=== PATIENT | female | born 1980 | race Caucasian/White ===

== ENCOUNTER → 2021-05-31 10:02 | Outpatient (CLI) | payer BC, SELFPAY ==
--- NOTE | ~2021-05-31 | XR_ITS ---
XR foot LT min 3V DATE: 05/31/2021 11:38 INDICATION: Left foot pain TECHNIQUE: 4 views COMPARISON: None FINDINGS: No fracture or dislocation, periosteal reaction or bone destruction. No erosive change. The re is degenerative spurring consistent with osteoarthritis at the tibiotalar joint. 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 Reviewed, dictated and finalized at location A.
== END ==
PROVIDERS: PCP Internal Medicine; Visit Provider Internal Medicine
DX: M19.072 Primary osteoarthritis, left ankle and foot (principal)
CPT/HCPCS: 73630

== ENCOUNTER → 2021-08-27 07:44 | Outpatient (CLI) | payer BC, SELFPAY ==
--- NOTE | ~2021-08-27 | MMUS_ITS ---
EXAMINATION: MM diagnostic primo BI w sumit, US breast RT complete HISTORY: Palpable right breast lump TECHNIQUE: Additional 3-D tomosynthesis images of the breasts were performed and synthetic 2-D images were generated. CAD analysis was submitted and interpreted. High resolution complete right breast ul trasound was performed. COMPARISON: None BREAST PARENCHYMAL COMPOSITION: The breasts are heterogenously dense, which may obscure small masses FINDINGS: MAMMOGRAPHIC FINDINGS: There are no suspicious masses, calcifications or architectural distortion in either breast to sugges t malignancy. There is a normal-appearing lymph node in the upper outer quadrant of the right breast posteriorly. ULTRASOUND: Complete US of all 4 quadrants of the the right and retroareolar region was reviewed. At 10:00, 9 cm from the nipple there is a normal-appearing 1.4 cm lymph node corresponding to the mammographic findi ng. There is normal fatty hilum. No suspicious solid or cystic masses are identified in the right lidia ast to suggest malignancy. IMPRESSION: 1. No evidence for malignancy in either breast. 2. Routine yearly screening mammogram and regular clinical breast examination are recommended. BI-RADS Category 2: Benign finding(s). Reviewed, dictated and finalized at location A. IMPRESSION: 1. No evidence for malignancy in either breast. 2. Routine yearly screening mammogram and regular clinical breast examination a re recommended. BI-RADS Category 2: Benign finding(s).
== END ==
PROVIDERS: PCP Internal Medicine; Visit Provider Nurse Practitioner
DX: N64.59 Other signs and symptoms in breast (principal); N60.11 Diffuse cystic mastopathy of right breast
CPT/HCPCS: 76641; 77062; 77066; G0279

== ENCOUNTER 2022-06-23 13:38 | Inpatient (IN) | payer BC, SELFPAY ==
[2022-06-23] VITALS (25 sets, daily range): BP systolic 82–149; BP diastolic 49–112; PULSE 102–137; RESP 16–37; TEMP 35.8–37.6; O2SAT 74–100
--- NOTE | ~2022-06-23 | XR_ITS ---
EXAMINATION: XR chest ET placement DATE: 06/23/2022 14:05 INDICATION: Intubation. Cardiac arrest. TECHNIQUE: A single frontal view of the chest was obtained. COMPARISON: Chest single view 10/25/2017 FINDINGS: There are airspace opacities in all lung zones bilaterally with an upper lung predominance. No pleural effusion or pneumothorax. The heart size is normal. The endotracheal tube tip is 5.9 cm a emigdio the sejal. The nasogastric tube tip is beyond the inferior margin of the radiograph, but at dexter st to the stomach. IMPRESSION: 1. Diffuse lung disease, consistent with pulmonary edema versus pneumonia. Reviewed, dictated and finalized at location A.
--- NOTE | ~2022-06-23 | CT_ITS ---
EXAMINATION: CTA chest PE protocol DATE: 06/23/2022 14:33 INDICATION: Cardiac arrest. TECHNIQUE: Computed tomography angiography (CTA) of the chest was performed with 100 mL Omnipaque-350 intravenous contrast timed to evaluate the pulmonary arteries. Coronal maximum intensity projection 3D-reconstructions were created by the technologist. Automated exposure control and iterative reconst ruction technique were employed. The dose-length product was 1013.05 mGy-cm. COMPARISON: Chest single view 06/23/2022 FINDINGS: There are airspace and groundglass opacities and septal thickening throughout the lungs wit h a posterior and superior and perihilar predominance. No pleural effusion. The heart size is normal. No pericardial effusion. There is no pulmonary embolus. There are changes of cholecystectomy. The na sogastric tube tip is in the stomach. The stomach is distended. The endotracheal tube tip is in the t rachea. There is mild thoracic spondylosis. IMPRESSION: 1. No pulmonary embolus. Sensitivity is mildly decreased by motion artifact. 2. Diffuse lung disease, consistent with severe pulmonary edema without or with superimposed pneumoni a. Reviewed, dictated and finalized at location A. IMPRESSION: 1. No pulmonary embolus. Sensitivity is mildly decreased by motion artifact. 2. Diffuse lung disease, consistent with severe pulmonary edema without or with superimposed pneumonia.
--- NOTE | ~2022-06-23 | CT_ITS ---
EXAMINATION: CT brain wo con DATE: 06/23/2022 14:31 INDICATION: Head injury. TECHNIQUE: Computed tomography (CT) of the head was performed without intravenous contrast. The mA wa s adjusted according to patient size. Iterative reconstruction technique was employed. The dose-lengt h product was 756.67 mGy-cm. COMPARISON: None FINDINGS: There is no intracranial hemorrhage, acute infarction, or abnormal intracranial mass lesion . The ventricles are normal in size. The orbits are normal. There is mild mucosal thickening in the p aranasal sinuses. The mastoid air cells are normal. There is multifocal dental disease. There is left frontal lateral scalp soft tissue swelling with skin stephanie. IMPRESSION: 1. Normal brain. Reviewed, dictated and finalized at location A. IMPRESSION: 1. Normal brain.
--- NOTE | ~2022-06-23 | CT_ITS ---
EXAMINATION: CT cervical spine wo con DATE: 06/23/2022 14:32 INDICATION: fall TECHNIQUE: Computed tomography (CT) of the cervical spine was performed without intravenous contrast. Automated exposure control and iterative reconstruction technique were employed. The dose-length pro duct was 541.69 mGy-cm. COMPARISON: None. FINDINGS: Vertebral Body Alignment: Intact. . Craniocervical and atlantoaxial alignment: Moderate degenerative change. Alignment intact. Osseous structures/fracture: No evidence of a lytic or blastic process in the visualized spine. No e vidence of acute fracture. . Cervical soft tissues: The paraspinal soft tissues planes are maintained. NG and endotracheal tubes t raverse the neck. Diffuse patchy airspace disease and interlobular septal thickening. Left maxillary mucosal thickening. Degenerative changes: Degenerative changes, without severe neural foraminal or central canal narrowin g. IMPRESSION: No acute fracture or traumatic malalignment in the cervical spine. Severe pulmonary edema. Incomplete ly visualized endotracheal and nasogastric tubes. Reviewed, dictated and finalized at location K. IMPRESSION: No acute fracture or traumatic malalignment in the cervical spine. Severe pulmo nary edema. Incompletely visualized endotracheal and nasogastric tubes.
--- NOTE | ~2022-06-23 | XR_ITS ---
EXAMINATION: XR abdomen NG/feed tube insert INDICATION: Cardiac arrest TECHNIQUE: Portable AP KUB-NG at 1402 hours COMPARISON: None available FINDINGS: The nasogastric tube is present in the distended stomach. The bowel gas pattern is nonspeci fic. Surgical clips in the right upper quadrant are likely from prior cholecystectomy. IMPRESSION: 1. Nasogastric tube in the distended stomach. Reviewed, dictated and finalized at location B.
--- NOTE | 2022-06-23 13:34 | PC.NURSE ---
Pt arrived via EMS with bagging in process. Pt transferred to ED stretcher and Dr. Oconnell at head of bed to intubate patient. 20 etomidate given at 1338. 150 succ given at 1339. Pt successfully intubated with B breath sounds, color change, and equal chest rise and fall. Ett size 7.5, 23cm at teeth.
[2022-06-23] MEDS: AMIODARONE 360 MG/D5W 200 ML 360 MG/200 ML BAG 33.33 MG IV CONT ×2 (13:40→19:30)
--- NOTE | 2022-06-23 13:44 | ECG_ITS ---
Measurements Intervals [place] Rate: 120 P: -11 CO: 168 QRS: -7 QRSD: 168 T: 130 QT: 354 QTc: 501 Interpretive Statements SINUS TACHYCARDIA LEFT BUNDLE BRANCH BLOCK [120+ ms QRS DURATION, 80+ ms Q/S IN V1/V2, 85+ ms R IN I/aVL/V5/V6] NO PREVIOUS ECG AVAILABLE FOR COMPARISON Electronically Signed On 06-24-2022 14:00:08 CDT by Channing Jamil M.D.
[2022-06-23] MEDS: SODIUM CHLORIDE 0.9% IV 1,000 ML 999 ML IV CONT (13:48)
[2022-06-23] MEDS: FENTANYL 2,500MCG/NS250ML(*CRX 2,500 MCG/250 ML BAG IV CONT (13:53)
[2022-06-23 13:59] LABS: Hematocrit 53.7 % (37.0-47.0); Hemoglobin 16.2 g/dL (12.0-15.0); Mean Corpuscular HGB Conc 30.2 g/dl (32-36); Mean Corpuscular Hemoglobin 28.6 pg (26-34); Mean Corpuscular Volume 94.7 fl (80-100); Mean Platelet Volume 12.6 fl (7.4-10.4); Platelet Count Result 201 k/mm3 (150-375); Red Blood Count 5.67 M/mm3 (4.2-5.4); White Blood Count 13.4 K/mm3 (4.5-10.0)
--- NOTE | 2022-06-23 14:03 | ED.CPR ---
HPI - CPR General Chief Complaint: Cardiac Arrest/CPR Stated Complaint: ROSC Time Seen by Provider: 06/23/22 13:53 History of Present Illness HPI narrative: Patient is a 42-year-old female presenting after cardiac arrest. Patient was reportedly sitting at the breakfast table with her family when she suddenly complained of feeling lightheaded. Patient's daughter was with her and states that she became pale and then suddenly fell to the floor striking her head. Patient's daughter called 911 and started chest compressions per EMSs recommendation. EMS arrived and continued ACLS. Patient was found to be in V-fib, received 3 rounds of epi and was shocked 5-6 times with ROSC. Following ROSC, rhythm was sinus tach. EMS reports that she has been fighting BVM. I-gel is in place. Further history limited at this time. Related Data Home Medications Medication Instructions Recorded Confirmed No Home Medications 06/23/22 06/23/22 Allergies Allergy/AdvReac Type Severity Reaction Status Date / Time azithromycin Allergy Mild Hives / Verified 03/24/18 12:33 Red Face cefuroxime Allergy Unknown Verified 03/24/18 12:33 Cephalosporins Allergy Unknown Verified 03/24/18 12:33 Penicillins Allergy Unknown Verified 08/09/14 09:57 Review of Systems Review of Systems: ROS unobtainable: Yes unobtainable due to endotracheal tube, unobtainable due to medical condition and unobtainable due to mental status PMFSH Past Medical History Medical History (Updated 06/26/22 @ 22:03 by Jessika Oconnell MD) Anxiety Pneumonia SVT (supraventricular tachycardia) Surgical History Surgical History Hx of cholecystectomy S/P tonsillectomy and adenoidectomy Family History Family History (Updated 06/23/22 @ 21:34 by Marci Dan NP) Mother Family history of lung cancer Father Heart disease Other Asthma Family history of alcoholism Family history of kidney disease Social History Social History (Updated 06/23/22 @ 21:35 by Marci Dan NP) Social History: The patient lives with her . She has 4 children. Code status full code Smoking status: Never smoker Alcohol intake: never Substance use: never Spiritual care concerns: No Exam Narrative: GENERAL: Unresponsive, i-gel in place; profuse frothy pink secretions from mouth, nose, i-gel HEAD: 2 cm laceration left forehead EYES: Pupils approximately 4 mm bilaterally ENT: Profuse frothy secretions NECK: Supple. CHEST: Coarse breath sounds bilaterally with bagging HEART: Tachycardic, regular rhythm, 2+ radial pulses ABDOMEN: Soft, nontender, nondistended EXTREMITIES: No edema. SKIN: Warm, dry, no rash. NEURO: Unresponsive, intermittently thrashing PSYCH: Unresponsive Course Vital Signs Vital signs: Vital Signs Pulse Rate 136 H 06/23/22 13:40 Respiratory Rate 28 H 06/23/22 13:40 Blood Pressure 149/112 H 06/23/22 13:40 Temperature 98.1 F 06/24/22 01:44 Pulse Rate 102 H 06/24/22 02:00 Respiratory Rate 24 H 06/24/22 02:00 Blood Pressure 89/62 L 06/24/22 02:00 Pulse Oximetry 100 06/24/22 02:00 Oxygen Delivery Mechanical Ventilation 06/24/22 00:00 Fraction of Inspired Oxygen 100 06/24/22 00:00 Procedures Intubation Intubation #1: Intubation Date: 06/23/22 sedative: Etomidate Mg Given: 20 paralytic: Succinylcholine Mg Given: 150 Laryngoscope: Srinivasan Tube Size (cm): 7.5 Method of Intubation: orotracheal Number of Attempts: 2 Tube Secured Depth (cm): 23 Tube Secured Location: lips Tube Placement Confirmation: equal breath sounds bilaterally, no breath sounds over epigastrium and confirmation by capnometry Patient Tolerated Procedure: well Additional Comments: somewhat difficult intubation 2/2 oral secretions MDM - Cardiac Arrest/CPR MDM Narrative Med
[2022-06-23 14:13] LABS: Lactic Acid Reflex 9.5 mmol/L (0.7-2.0)
[2022-06-23 14:24] LABS: Amphetamine Screen Urine Negative (Negative); Barbiturate Screen Urine Negative (Negative); Benzodiazepines Screen Urine Negative (Negative); Cannabinoid Screen Urine Negative (Negative); Cocaine Screen Urine Negative (Negative); Methadone Screen Urine Negative (Negative); Opiate Screen Urine Negative (Negative); Phencyclidine Screen Urine Negative (Negative)
[2022-06-23 14:25] LABS: Appearance Urine Clear (Clear); Bacteria Urine None Seen /hpf; Bilirubin Urine Negative (Negative); Blood Urine 3+ (Negative); Color Urine Yellow (Yellow); Glucose Urine UA Negative (Negative); Ketones Urine Negative (Negative); Leukocyte Esterase Ur Trace LEU/UL (Negative); Nitrate Urine Negative (Negative); Non Pathogenic Casts 0-2; Protein Urine Negative (Negative); Specific Grav Ur 1.015 (1.001-1.035); Squamous Epithelial Cell Urine Occasional /hpf (Few); Urobilinogen Urine 0.2 mg/dL (<2.0)
[2022-06-23 14:38] LABS: Add Urine Microscopic? YES; Need Manual Microscopic Reviewed
[2022-06-23 14:40] LABS: Influenza A QL RT-PCR Negative (Negative); Influenza B QL RT-PCR Negative (Negative); SARS-CoV-2 RNA PCR Negative (Negative)
[2022-06-23 14:43] LABS: Anisocytosis 2+ (NORMAL); Band Neutrophils Percent 7 % (0-6); Eosinophils Percent Manual 3 % (0-4); Hypochromasia 1+ (NORMAL); Monocytes Percent Manual 6 % (3-9); Neutrophils Absolute Manual 4.28 K/mm3 (1.7-7.2); Neutrophils Percent Manual 25 % (46-73); Platelet Estimate Adequate (Adequate); Total Cells Counted 100
[2022-06-23 14:44] LABS: Atypical Lymphocytes Present; Microcytosis 1+ (NORMAL); Schistocytes None Seen (NORMAL)
--- NOTE | 2022-06-23 14:48 | PM.CNCAR ---
Assessment and Plan Assessment and plan (1) Ventricular fibrillation: Code(s): I49.01 - Ventricular fibrillation Status: Acute Plan 42-year-old lady unknown to me prior to this presentation she has out of hospital VF arrest and following resuscitation is noted to have a left bundle branch block. She did take a blow to the head when she fell with her VF at home. She will be sent to Radiology for head CT and chest CTA. Pending these findings and her basic lab work we will anticipate likely coronary angiography because of out of hospital VF and the development of left bundle branch block. Mo Mahmood MD [facility] History of Present Illness History of Present Illness Consult date/time: 06/23/22 14:48 Reason For Visit: ROSC Narrative: This is a 42-year-old patient I am seeing in the emergency department following out of hospital ventricular fibrillation. She is unknown to me prior to this encounter. A know history is of course obtainable from this patient as she is intubated unresponsive and on ventilator support. She apparently was in her home earlier today a short time ago having a meal with her family and collapsed at the table. Of 1 of family members began CPR and 911 was called. Upon arrival the patient was in ventricular fibrillation and resuscitation efforts were undertaken. She according to the report had CPR and 6 electrical cardioversion attempts before spontaneous circulation was restored. She was brought here to the emergency room that setting. The electrocardiogram shows sinus rhythm with a left bundle branch block. The old records from this hospital to not speak to the presence of a left bundle branch block. There are records that demonstrate evidence of SVT that occurred a number of years ago when she was . I have no other medical information available to me at the time of this dictation. Review of Systems Review of Systems: ROS unobtainable: Yes unobtainable due to endotracheal tube and unobtainable due to mental status [facility] Family History Family History Mother Family history of lung cancer Other Asthma Family history of alcoholism Family history of kidney disease Social History Social History Smoking status: Never smoker Alcohol intake: never Meds Home Medications and Allergies Allergies Allergy/AdvReac Type Severity Reaction Status Date / Time azithromycin Allergy Mild Hives / Verified 03/24/18 12:33 Red Face cefuroxime Allergy Unknown Verified 03/24/18 12:33 Cephalosporins Allergy Unknown Verified 03/24/18 12:33 Penicillins Allergy Unknown Verified 08/09/14 09:57 Vital Signs Vital Signs - 24 hr 06/23/22 13:40 06/23/22 13:53 Pulse Rate 136 H 121 H Respiratory Rate 28 H 21 H Blood Pressure 149/112 H Exam Const: Other: Overweight white female intubated unresponsive HENMT: Mouth: Yes moist mucous membranes Eyes: Sclera: sclerae normal Neck: Neck: supple Resp: Other: patient on ventilator breath sounds are somewhat coarse no rales no wheezing Cardio: Rate: regular rate Rhythm: regular rhythm Other: PMI not palpable first and second heart sounds are normal no murmur no gallop or rub GI: GI Palp: Yes Soft to palpation Auscultation: normal bowel sounds Skin: General skin exam: normal color Neuro: Other: unresponsive on ventilator Extrem: Other: no edema, adequate distal perfusion Results Labs and Meds 06/23/22 13:44 Lab results: CBC 06/23/22 Range/Units 13:44 WBC 13.4 H (4.5-10.0) K/mm3 RBC 5.67 H (4.2-5.4) M/mm3 Hgb 16.2 H (12.0-15.0) g/dL Hct 53.7 H (37.0-47.0) % Plt Count 201 (150-375) k/mm3 Lymph # (Auto) Not Reportable [place] # (Auto) Not Reportable Eos # (Auto) Not Reportable Baso # (Auto) Not Reportable Patient Weight 06/23/22
[2022-06-23] MEDS: MIDAZOLAM HCL (*CRX) 2 MG/2 ML VIAL (15:00)
[2022-06-23] MEDS: LIDO 1%/EPINEPHRINE 1:100,000 10 ML VIAL (15:00)
[2022-06-23] MEDS: MIDAZOLAM HCL (*CRX) 2 MG/2 ML VIAL 4 MG (15:00)
[2022-06-23] MEDS: MIDAZOLAM 100MG/NS 100ML(*CRX) 100 MG/100 ML BAG IV CONT (15:03)
[2022-06-23 15:17] LABS: INR 1.3
[2022-06-23 15:18] LABS: Partial Thromboplastin Time 42.6 SECONDS (22.3-36.8)
[2022-06-23 15:25] LABS: Alveolar/Arterial O2 Gradient 580.8 mmHg; Base Excess ABG -15.3 mEq/l (+/-2.0); Fractional Inspired Oxygen 100 %; HCO3 ABG 16.2 mEq/l (22.0-26.0); Oxygen Content ABG 19.3 %vol (16.0-22.0); PO2 ABG 70.1 mmHg (80.0-100.0)
[2022-06-23 15:25] LABS: Alanine Aminotransferase 81 U/L (6-35); Albumin Level 3.6 g/dL (3.5-5.1); Alkaline Phosphatase 46 U/L (38-126); Anion Gap 13 mmol/L (8-16); Aspartate Amino Transferase 117 U/L (14-36); Bilirubin,Total 0.8 mg/dL (0.2-1.3); Blood Urea Nitrogen 11 mg/dL (7-17); Calcium 7.3 mg/dL (8.4-10.2); Carbon Dioxide 17 mmol/L (22-30); Chloride 104 mmol/L (98-107); Estimated Glomerular Filt Rate 54; Glucose 346 mg/dL (65-110); Lipase 230 U/L (23-300); Magnesium 2.1 mg/dL (1.6-2.3); Phosphorus 8.1 mg/dL (2.5-4.5); Sodium 134 mmol/L (137-145)
[2022-06-23 15:27] LABS: PCO2 ABG 62.1 mmHg (35.0-45.0); pH ABG 7.035 (7.350-7.450)
[2022-06-23 15:28] LABS: Arterial Blood Gas Vent Mode CMV; Arterial Blood Gas Ventilator rate 16 /MIN; Device VENTILATOR; Oxygen Saturation ABG 84.7 % (95.0-100.0); Oxyhemoglobin 85.6 % THb (90.0-100.0); Site Drawn RIGHT BRACHIAL
[2022-06-23 15:29] LABS: Arterial Blood Gas PEEP 8 cmH2O; Arterial Blood Gas Tidal Volume 500 ml
[2022-06-23 15:35] LABS: NT Pro B Type Natriuretic Pept 419 pg/mL (19.9-100); Troponin I 0.153 ng/mL (0.000-0.034)
[2022-06-23] MEDS: FUROSEMIDE INJ 100 MG/10 ML VIAL 80 MG IV PUSH (15:37)
--- NOTE | 2022-06-23 15:48 | PC.NURSE ---
track laborer nurses here to prep patient, report given to RN. Family at bedside and updated on plan.
--- NOTE | 2022-06-23 16:40 | P.PCNCC_ITS ---
Cardiac Cath Procedure Note Date of procedure:: 06/23/22 Performing physician:: Mo Mahmood MD Indication:: out of hospital ventricular fibrillation arrest left bundle branch block Brief clinical history:: this is a 42-year-old woman with a history of hypertension who also has a previous history of SVT which was terminated with adenosine in the past. She apparently was at her home earlier today and was in having a meal with family and became unresponsive at the table. She was pulseless and not breathing CPR was started by the family. EMS found her to be in ventricular fibrillation. Resuscitation involved 6 electrical cardioversions and ongoing CPR ultimately spontaneous circulation was restored. Electrocardiogram here demonstrates left bundle branch block which is not previously seen on her electrocardiograms. She has undergone head and chest CT because of the fall and rule out pulmonary embolism these have been negative. Because of the VFib arrest and new left bundle branch block I have recommended coronary angiography. Procedure Procedure performed:: Coronary angiogram left ventriculogram Sedation/Medication given:: patient received intravenous Versed and fentanyl. Received 1 bolus of propofol in the laboratory chemical assistant case start time 4:10 p.m. case end time 4:33 p.m. sedation provided by Karla Bolden RN, trained observer Access site:: right femoral artery Estimated blood loss:: 25 cc Procedure note:: patient was brought to the cardiac catheterization lab in the postabsorptive state where the right femoral triangle was prepped and draped in the usual fashion. Anesthesia was provided with 1% lidocaine infiltrated locally. Following this the right femoral artery was punctured and a 5 [place] vascular sheath was placed. After this I used a 5 [place] FL4 catheter to engage and inject the left coronary artery in multiple projections. A 5 [place] JR4 catheter was used to engage inject the right coronary artery in orthogonal projections. Following this a 5 [place] angled pigtail catheter was used to measure left-sided hemodynamics and to inject old LV g in the 30 degree KIM projection. the case was then terminated the sheath was sutured into position the patient was taken to the ICU for further evaluation and management post VFib arrest. Findings:: Hemodynamics: Central aortic pressure was 98 over 64 left ventricle 98 over 5 end-diastolic 32. No gradient on pullback across the aortic valve left ventricle: The LV is markedly dilated there is severe global systolic hypocontractility with an ejection fraction I would visually estimate to be 15%. The left main coronary artery appears nicely patent the left anterior descending is a medium caliber artery extending down to the apex the LAD and its branches are smooth and angiographically normal. The circumflex is a small caliber vessel giving rise to only 1 significant marginal branch. The circumflex is smooth and angiographically normal in appearance. The right coronary artery is very large in caliber and dominant to the posterior circulation the RCA is also smooth and angiographically normal in appearance. Conclusion:: 1. Right coronary dominant circulation with no angiographic evidence of coronary artery disease 2. severe dilated cardiomyopathy with ventricular fibrillation resulting from this patient now in pulmonary edema with high LVEDP Mo Mahmood MD [facility]
--- NOTE | 2022-06-23 16:56 | ADMGEN ---
This patient, Kirsten Neri, was admitted to Intensive Care Unit-10. Patient/family oriented to hospital policies and general routines including ID bracelet, bed and alarms, visiting hours, pain management, procedures, bathroom and other care routines, personal items, smoking policy, room service/diet, and visiting hours. Information on how to activate the Rapid Response Team has been discussed. Patient/Family are encouraged to report perceived risks to care and to ask questions if they do not understand what they are told or what they should do.
[2022-06-23 16:57] LABS: Reflex Lactic Acid Yes or No Add Lactic
--- NOTE | 2022-06-23 17:22 | PCRCNOTE ---
On 06/23/2022 at 1524, RT notified Jessika Oconnell MD of ABG results. stated she is ok with SpO2 beng 85% or higher until patient is Diuresed.
--- NOTE | 2022-06-23 17:24 | PM.IMHP ---
H&P: HPI History of Present Illness Date/Time: 06/23/22 17:24 Chief Complaint: Cardiac arrest/CPR Narrative: This is a 42-year-old female patient who has a history of SVT. The family stated that the patient had been complaining of having palpitations and severe fatigue with shortness of breath. The patient presented to the hospital today with cardiac arrest. The patient was sitting at the breakfast table with her family when she suddenly complained of feeling lightheaded. Her daughter was with her and stated that she became pale and then suddenly fell to the floor striking her head. The patient's daughter called 911 and started chest compressions on the patient as recommended be a dispatch. EMS arrived and continued ACLS. The patient was found to be in VFib. She received 3 rounds of epi and was shocked 5-6 times with Rosc. The patient was in sinus rhythm and then sinus tachycardia. The patient was intubated prior to being admitted. She was intubated in the emergency room. It was noted that the patient had a large amount of frothy secretions. EKG was showing sinus tachycardia and left bundle branch block no ST elevations. Dr. Mahmood had been consulted and the patient was taken to the cardiac catheterization lab. It was noted that the patient had severe dilated cardiomyopathy with ventricular fibrillation resulting from this patient now in pulmonary edema with high LVEDP. EF is approximately 15%. Her white count was noted to be 22.6. Initial ABG pH 7.035 CO2 62.1 PO2 was 70.1. Troponin was noted to be 0.153, 0.665, and 0.983. BNP was 419. Influenza A/B and COVID are negative. Chest CTA was read as no pulmonary embolism sensitivities mildly decreased by motion artifact. Diffuse lung disease, consistent with severe pulmonary edema without or with superimposed pneumonia. Cervical spine no acute fracture or traumatic malalignment of the cervical spine. Severe pulmonary edema incompletely visualized endotracheal and nasogastric tubes. Head CT was read as normal brain. Chest x-ray shows the NG tube in the distended stomach. The patient was started on heparin drip, IV Lasix sodium bicarb and Versed., the patient had a laceration to her left forehead. Patient's blood pressure is low when I examined her therefore the decision to place a central line to the left femoral vein. Please see procedure note. The guard manager has been consulted. the patient is being admitted to inpatient status on the date of service of 06/23/2022. Review of Systems Review of Systems: All systems reviewed & are unremarkable except as noted in HPI and below Constitutional: Constitutional: Reports as per HPI and Reports no additional constitutional complaints Eyes: Eyes: Reports as per HPI and Reports no additional eye complaints ENT: Reports system reviewed and no additional complaints, except as documented and Reports Normal hearing present Cardiovascular: Cardiovascular: Reports no additional cardiovascular complaints Respiratory: Respiratory: Reports no additional respiratory complaints and Reports no additional respiratory complaints Gastrointestinal: Gastrointestinal: Reports as per HPI and Reports no additional gastrointestinal complaints Musculoskeletal: Musculoskeletal: Reports no additional musculoskeletal complaints Integumentary/Breasts: Skin/Breast: Reports system reviewed and no additional complaints, except as docu and Reports as per HPI Neurologic: Reports system reviewed and no additional complaints, except as documented, Reports as per HPI and Reports Normal hearing present Psychiatric: Psychiatric: Reports no additional psychiatric complaints and Reports as per HPI Endocrine: Endocrine: Reports no additional endocrine complaints Hematologic/Lymphatic: Hematologic/Lymphatic: Reports no additional hematologic/lymphatic complaints Allergic/Immunologic: Allergic/Immunologic: Reports no additional allergic/immunologic complaints [facility]
--- NOTE | 2022-06-23 18:15 | WPDPROCEDUR ---
Procedures Central Line Placement Left Femoral: Central Line Date: 06/23/22 Central Line Time: 18:00 Consent: I have discussed with the patient and/or surrogate, the non-emergent placement of a central venous catheter, including its clinical necessity/indication and associated potential risks and complications. The patient and/or surrogate understand(s) and acknowledge(s) the need to proceed with central venous catheter insertion as an important element of the patient's clinical management. Time Out Performed: Yes Patient Position: supine Patient placed on monitor/pulse ox: Yes Provider Prep: Max. sterile barrier precautions Central line prep: 2% Chlorhexidine scrub Local anesthesia used: lidocaine 1% Amount of anesthesia used (ml): 5 Sterile US Technique with sterile gel/sterile probe covers: Yes Central line lumen inserted: triple [place]: 7 Length (cm): 16 Depth of Insertion (cm): 16 Post Procedure: sutured in place, good blood return, all ports aspirated, flushed, capped, transparent dressing, hemostatic product and antimicrobial product Patient tolerated procedure: well and no complications Complications: none Additional comments: no xray required as it was femoral
[2022-06-23] MEDS: NOREPINEPHRINE 8 MG/D5W 250 ML 8 MG/250 ML BAG 9.38 MG IV CONT (18:38)
[2022-06-23 18:42] LABS: Alveolar/Arterial O2 Gradient 584.5 mmHg; Base Excess ABG -10.2 mEq/l (+/-2.0); Fractional Inspired Oxygen 100 %; HCO3 ABG 17.1 mEq/l (22.0-26.0); Oxygen Content ABG 22.6 %vol (16.0-22.0); Oxygen Saturation ABG 94.7 % (95.0-100.0); Oxyhemoglobin 95.1 % THb (90.0-100.0); PCO2 ABG 42.5 mmHg (35.0-45.0); PO2 FiO2 Ratio Arterial Blood 0.86 %; Total Hemoglobin 16.9 g/dL (12.0-18.0)
[2022-06-23 18:43] LABS: Device VENTILATOR; Modified Allen's Test Pass; Site Drawn LEFT RADIAL; pH ABG 7.222 (7.350-7.450)
[2022-06-23 18:43] LABS: Hematocrit 51.3 % (37.0-47.0); Hemoglobin 15.9 g/dL (12.0-15.0); Lactic Acid 2.8 mmol/L (0.7-2.0); Mean Corpuscular Hemoglobin 28.8 pg (26-34); Mean Corpuscular Volume 92.9 fl (80-100); Mean Platelet Volume 11.8 fl (7.4-10.4); Platelet Count Result 329 k/mm3 (150-375); Red Blood Count 5.52 M/mm3 (4.2-5.4); Red Cell Distribution Width 13.2 % (11.5-14.5); White Blood Count 22.6 K/mm3 (4.5-10.0)
[2022-06-23 18:44] LABS: Arterial Blood Gas PEEP 8 cmH2O; Arterial Blood Gas Tidal Volume 500 ml; Arterial Blood Gas Vent Mode CMV; Arterial Blood Gas Ventilator rate 16 /MIN
[2022-06-23] MEDS: HEPARIN SODIUM 5,000 UNITS/ML VIAL 4000 UNITS IV PUSH (18:48)
[2022-06-23] MEDS: HEPARIN SOD/D5W 100 UNITS/ML 25,000 UNITS/250 ML BAG 9 UNITS IV CONT (18:48)
[2022-06-23] MEDS: CENTRAL LINE FLUSH 10 ML IV PUSH ×2 (18:52→20:39)
[2022-06-23 18:54] LABS: INR 1.2; Prothrombin Time 14.4 Seconds (11.1-14.7)
[2022-06-23 18:55] LABS: Partial Thromboplastin Time 30.8 SECONDS (22.3-36.8)
[2022-06-23 19:00] LABS: Troponin I 0.665 ng/mL (0.000-0.034)
[2022-06-23] MEDS: SODIUM BICARBONATE 8.4% 50 MEQ/50 ML SYRINGE IV PUSH ×2 (19:13→22:22)
[2022-06-23] MEDS: MIDAZOLAM HCL (*CRX) 2 MG/2 ML VIAL IV PUSH (19:30)
[2022-06-23 19:38] LABS: Total Cells Counted 100
[2022-06-23 19:39] LABS: Band Neutrophils Percent 11 % (0-6); Lymphocytes Absolute Manual 3.39 K/mm3 (1.1-4.5); Lymphocytes Percent Manual 15 % (18-44); Monocytes Absolute Manual 0.67 K/mm3 (0.1-0.90); Monocytes Percent Manual 3 % (3-9); Neutrophils Absolute Manual 18.53 K/mm3 (1.7-7.2); Neutrophils Percent Manual 71 % (46-73)
[2022-06-23 19:40] LABS: Large Platelets Present; Ovalocytes 1+ (NORMAL); Platelet Estimate Adequate (Adequate); Schistocytes None Seen (NORMAL)
[2022-06-23] MEDS: VASOPRESSIN INJ 100 UNITS in DEXTROSE 5% 95 ML IV CONT (20:38)
[2022-06-23 20:39] LABS: Alveolar/Arterial O2 Gradient 512.2 mmHg; Base Excess ABG -9.2 mEq/l (+/-2.0); Carboxyhemoglobin 0.3 % THb (0-2.0); Fractional Inspired Oxygen 90 %; HCO3 ABG 18.1 mEq/l (22.0-26.0); Methemoglobin ABG 0.6 %THb (0-1.5); Oxygen Content ABG 20.8 %vol (16.0-22.0); Oxygen Saturation ABG 94.5 % (95.0-100.0); Oxyhemoglobin 94.5 % THb (90.0-100.0); PO2 ABG 84.4 mmHg (80.0-100.0); PO2 FiO2 Ratio Arterial Blood 0.94 %; Reduced Hemoglobin 4.6 %THb (0-5.0); Total Hemoglobin 15.6 g/dL (12.0-18.0)
[2022-06-23 20:40] LABS: pH ABG 7.231 (7.350-7.450)
[2022-06-23 20:41] LABS: Arterial Blood Gas PEEP 8 cmH2O; Arterial Blood Gas Tidal Volume 400 ml; Arterial Blood Gas Vent Mode CMV; Arterial Blood Gas Ventilator rate 24 /MIN; Device VENTILATOR; Site Drawn ARTLINE
[2022-06-23 21:16] LABS: Troponin I 0.983 ng/mL (0.000-0.034)
[2022-06-23] MEDS: HYDROCORTISONE SODIUM SUCCINATE 100 MG/2 ML VIAL IV PUSH (22:21)
--- NOTE | 2022-06-23 23:00 | WPDHPUPDATE1 ---
History and Physical Update Update Date/Time: 06/23/22 23:00 History and Physical has been reviewed, including an updated exam of the patient. There are NO changes in the patient's condition. Risks, benefits, and alternatives have been discussed and questions answered. Patient agrees to proceed with procedure.
--- NOTE | 2022-06-23 23:02 | P.OP_ITS ---
Procedure Note - Detailed Date of Procedure 06/24/22 Pre-op Diagnosis Out of Hospital Ventricular Fibrillation/Cardiomyp Post-op Diagnosis Same Procedure Performed 1- right common femoral artery angiogram. 2- insertion of left ventricular assist device Impella Surgeon Tim Giron MD Anesthesia Other ( patient is under the deep sedation) Indications cardiogenic shock Findings patient arrived to the rn labor delivery with low blood pressure. She is on high-dose L evophed and vasopressin. Description of Procedure Patient was brought into rn labor delivery. The old right groin sheath was removed and a new sheath was placed in sterile manner then right common femoral artery angiogram was done. Then after that serial dilatation of the right femoral artery was done and subsequently insertion of Impella sheath. Then we went with a pigtail catheter and crossed the aortic valve and we used a long exchange wire to take the Impella. Impella secured in place. it was inserted at 89 cm. it was pumping 4 liters/minute at P9 Implants Impella Estimated Blood Loss 5 Complications None Condition Critical Disposition ICU
[2022-06-23] MEDS: PROPOFOL IV EMULSION 100 ML 3 MG IV CONT (23:25)
--- NOTE | 2022-06-23 23:30 | PC.NURSE ---
agricultural equipment sales engineer and general labor forklift operator RN with RT took patient to general labor forklift operator
[2022-06-24] VITALS (9 sets, daily range): BP systolic 77–90; BP diastolic 54–70; PULSE 100–109; RESP 24–27; TEMP 36.7; O2SAT 99–100
[2022-06-24] MEDS: NOREPINEPHRINE 8 MG/D5W 250 ML 8 MG/250 ML BAG 33.75 MG IV CONT (01:01)
[2022-06-24] MEDS: AMIODARONE 360 MG/D5W 200 ML 360 MG/200 ML BAG 33.33 MG IV CONT (01:02)
--- NOTE | 2022-06-24 01:06 | PC.NURSE ---
unable to find right pedal pulse in coreroom foundry laborer, Md Giron at bedside. Plans to transfer patient. MANAGER OF INTERNAL helped transfer patient back down to ICU with impella and coreroom foundry laborer team. in room and updated him
--- NOTE | 2022-06-24 01:27 | PM.PNCARD ---
Progress Note: A&P Assessment and Plan (1) Cardiogenic shock: Code(s): R57.0 - Cardiogenic shock Status: Acute Assessment and Plan: In regards to cardiogenic shock, she is status post ventricular fibrillation arrest at home. Ejection fraction 15%. No evidence of coronary artery disease per catheterization report. Was requiring high dose of pressors over the last few hours and I was called to place an Impella. I did take the patient to the labeling specialist and placed an Impella successfully. However post Impella we did Doppler the pulses in the right foot and we could not feel them. At this time I went to ICU spent long time updating the family about her condition. Also did call [facility] transfer line hospital. I did see the toe CCU attending at [place] Dr. redmond. [facility] is working to open a bed for this patient. We managed to lower down the Levophed from 28 mics to 18 mics. We are also working on trying to lower down the oxygen requirement. Currently requiring 90% from the ventilator. Although the pulse in the right foot cannot be felt, and the temperature of the right and the left foot seems to be equal. Family stated that the patient had a history of SVT but otherwise no significant problems. Lately she has been feeling tired lately. She is a mother of 4 children , the youngest 4 years old. Subjective Date/time seen: 06/24/22 01:27: Patient was taken to the labeling specialist and Impella device was inserted successfully. It is giving 3.5 liters/minute. However we noticed that after inserting the Impella that there was no pulsation in the right front. We could not Doppler dorsalis pedis or posterior tibial. Review of Systems Review of Systems: ROS unobtainable: Yes unobtainable due to endotracheal tube Exam Narrative: No acute distress Const: Other: No fever Eyes: Other: No discharge Resp: Other: Decrease air entry bilaterally entry Cardio: Other: Tachycardic, no murmur GI: Other: Soft nontender : Other: kay catheter in place Neuro: Other: Sedated and ventilated Extrem: Other: No edema Psych: Other: Unable to assess Objective Data Vital Signs Vital Signs: Vital Signs - 24 hr 06/23/22 13:40 06/23/22 13:53 06/23/22 14:59 Temperature 35.8 C L Pulse Rate 136 H 121 H Respiratory Rate 28 H 21 H Blood Pressure 149/112 H Pulse Oximetry Oxygen Delivery Fraction of Inspired Oxygen 06/23/22 14:04 06/23/22 14:47 06/23/22 15:03 Temperature Pulse Rate 136 H 136 H 135 H Respiratory Rate 21 H 23 H 24 H Blood Pressure 128/79 Pulse Oximetry 74 L 90 Oxygen Delivery Fraction of Inspired Oxygen 06/23/22 15:05 06/23/22 13:40 06/23/22 16:02 Temperature Pulse Rate 137 H 126 H Respiratory Rate 23 H Blood Pressure 120/66 123/77 Pulse Oximetry Oxygen Delivery Fraction of Inspired Oxygen 06/23/22 17:27 06/23/22 15:00 06/23/22 16:12 Temperature Pulse Rate 129 H Respiratory Rate 24 H Blood Pressure Pulse Oximetry Oxygen Delivery Mechanical Ventilation Mechanical Ventilation Fraction of Inspired Oxygen 100 100 06/23/22 17:36 06/23/22 18:00 06/23/22 18:00 Temperature Pulse Rate 127 H 126 H 126 H Respiratory Rate 20 Blood Pressure 90/62 L Pulse Oximetry 94 96 Oxygen Delivery Mechanical Ventilation Fraction of Inspired Oxygen 100 06/23/22 18:40 06/23/22 19:30 06/23/22 19:30 Temperature Pulse Rate 129 H 132 H Respiratory Rate 30 H Blood Pressure 82/53 L Pulse Oximetry Oxygen Delivery Mechanical Ventilation Fraction of Inspired Oxygen 100 06/23/22 19:40 06/23/22 19:50 06/23/22 19:55 Temperature Pulse Rate 137 H 132 H 130 H Respiratory Rate 34 H 30 H 30 H Blood Pressure Pulse Oximetry Oxygen Delivery Fraction of Inspired Oxygen 06/23/22 19:30 06/23/22 19:50 06/23/22 20:15 Temperature Pulse Rate 134 H 134 H Respirator
[2022-06-24 01:46] LABS: Hemoglobin 14.3 g/dL (12.0-15.0); Mean Corpuscular HGB Conc 31.8 g/dl (32-36); Mean Corpuscular Hemoglobin 28.9 pg (26-34); Mean Corpuscular Volume 91.1 fl (80-100); Platelet Count Result 319 k/mm3 (150-375); Red Blood Count 4.94 M/mm3 (4.2-5.4); Red Cell Distribution Width 13.3 % (11.5-14.5); White Blood Count 31.6 K/mm3 (4.5-10.0)
[2022-06-24 03:19] LABS: Glucose Point of Care 219 mg/dl (65-105)
--- NOTE | 2022-06-24 03:39 | PC.NURSE ---
patient transferred to [place] via airvac, report called to Frankie NICHOLS.
[2022-06-30 16:40] LABS: Activated Clotting Time 149 SEC (74-137)
[2022-06-30 16:44] LABS: Activated Clotting Time 269 SEC (74-137)
--- NOTE | 2022-07-28 13:11 | PM.TDS ---
Transfer Discharge Sum: Prov Provider Date of admission: 06/23/22 15:31 Primary care physician: Byron Barraza, Admitting clinician: Mo Joiner MD Consults: 06/23/22 15:32 Consult to Physician Routine Comment: Consulting Provider: Mo Mahmood Reason for consultation: vfib arrest Has provider been notified: Yes Consult to Physician Routine Comment: Consulting Provider: Shawna Burns Reason for consultation: vfib arrest Has provider been notified: Yes Attending physician on discharge: Tim Giron Discharging clinician: Tim Giron Anticipated date of transfer: 06/24/22 DS: Admitting Diagnosis Discharge Date 06/24/22 Admitting Diagnosis VFib arrest, cardiogenic shock DS: Discharge Diagnosis Discharge Diagnosis (1) Cardiogenic shock: Code(s): R57.0 - Cardiogenic shock Status: Acute Assessment and Plan: patient presented with cardiac arrest and VFib arrest. taken to the home performance laborer and was found to have normal coronary arteries. Low ejection fraction. Impella was placed. Patient remains low blood pressure and start on pressors. no pulses detected on the foot of Impella site. called [facility] and explained the critical nature of of her condition and they agree to accept the patient. patient might require ECMO (2) Low left ventricular ejection fraction: Code(s): R94.30 - Abnormal result of cardiovascular function study, unspecified Status: Acute Assessment and Plan: cardiogenic shock status post Impella (3) Cardiac arrest: Code(s): I46.9 - Cardiac arrest, cause unspecified Status: Acute (4) Ventricular fibrillation: Code(s): I49.01 - Ventricular fibrillation Status: Acute Assessment and Plan: status post defibrillation. Transfer Discharge Sum: Med Medications Active and Home Medications: Home Medications No Home Medications 06/23/22 [History Confirmed 06/23/22] Transfer Discharge Sum: Hosp Hospital Course Hospital course: Kirsten Neri is a 42 year old female Again with no significant past history who presented to the hospital after VFib arrest at home. Was taken to the home performance laborer and coronary arteries were normal. Was found to have low ejection fraction. Had an Impella placed. Was noticed to have diminished pulses and absen pulses of the foot of the Impella site. Called [facility] and agreed to transfer the patient for possible ECMO and further hemodynamic support given low ejection fraction and requiring vasopressors Time Spent with Patient Time attestation: Total time spent providing and/or coordinating transfer services: 2 hours Exam Const: Nutritional Appearance: well nourished HENMT: Head: normal to inspection Eyes: Eyelids: eyelids normal Neck: Thyroid: thyroid normal Chest: Chest palpation & inspection: normal inspection of the chest Resp: Auscultation: clear to auscultation bilaterally Cardio: Heart sounds: S1 normal heart sound present, S2 normal heart sound present and no murmurs GI: GI Palp: No abdominal tenderness Urinary Catheter: Urinary Catheter: urine clear Back/Spine/Pelvis: Back: no CVA tenderness Skin: General skin exam: normal color Neuro: Other: intubated and sedated Extrem: Right lower extremity: normal to inspection Left lower extremity: normal to inspection Psych: Other: sedated
== END 2022-06-24 03:40 | disposition short-term general hospital (02) | DRG 215 ==
LOC: ANHED 14:21 → ANHICU 15:57
PROVIDERS: Internal Medicine; Nurse Practitioner; Specialist; Admitting Provider Chiropractor; Emergency Provider Emergency Medicine; PCP Internal Medicine; Visit Provider Internal Medicine Cardiovascular Disease
PROC: 4A023N7 Measurement of Cardiac Sampling and Pressure, Left Heart, Percutaneous Approach (ICD-10-PCS; CPT 93452; principal; 2022-06-23 15:30)
PROC: (CPT 33979; principal; 2022-06-23 22:30)
DX: I49.01 Ventricular fibrillation (principal); J96.00 Acute respiratory failure, unspecified whether with hypoxia or hypercapnia; J18.9 Pneumonia, unspecified organism; R57.0 Cardiogenic shock; I46.2 Cardiac arrest due to underlying cardiac condition; I42.0 Dilated cardiomyopathy; I47.1 Supraventricular tachycardia; I44.7 Left bundle-branch block, unspecified; Z20.822 Contact with and (suspected) exposure to COVID-19; I10 Essential (primary) hypertension; Z90.49 Acquired absence of other specified parts of digestive tract; S01.81XA Laceration without foreign body of other part of head, initial encounter; W07.XXXA Fall from chair, initial encounter; F41.9 Anxiety disorder, unspecified
CPT/HCPCS: 31500; 33990; 36415; 36600; 70450; 71275; 72125; 80053; 80307; 81001; 82375; 82805; 82948; 83050; 83605; 83690; 83735; 83880; 84100; 84484; 85025; 85027; 85610; 85730; 87040; 87081; 87086; 87088; 87636; 93005; 93458; 94002; 96374; 96375; 99291; C1769; C1887; C1894; J0282; J0330; J1644; J1720; J1940; J2250; J2704; J3010; J3370; J7030; J7040; J7070; L1830; Q9967

== ENCOUNTER 2022-08-08 13:45 | Observation (INO) | payer BC, SELFPAY ==
[2022-08-08] VITALS (10 sets, daily range): BP systolic 118–146; BP diastolic 65–83; PULSE 75–91; RESP 16–21; TEMP 36.6; O2SAT 99–100
--- NOTE | ~2022-08-08 | US_ITS ---
EXAMINATION: US venous doppler UE RT DATE: 08/08/2022 16:49 INDICATION: Deep venous thrombosis TECHNIQUE: Grayscale ultrasound images without and with compression and Doppler ultrasound images of the right upper extremity veins were obtained. COMPARISON: None. FINDINGS: There is partial thrombosis of the right internal jugular vein. The right subclavian vein, axillary v ein, brachial veins, basilic vein, cephalic vein, radial vein, and ulnar vein are patent. IMPRESSION: 1. Partial thrombosis of the right internal jugular vein. These findings were discussed with Dr. Blas Forrest MD in the Emergency Department at 1724 hours on 08/08/2022. Reviewed, dictated and finalized at location F. IMPRESSION: 1. Partial thrombosis of the right internal jugular vein. These findings were discussed with Dr. Blas Forrest MD in the Emergency Depar tment at 1724 hours on 08/08/2022.
--- NOTE | 2022-08-08 16:27 | ED.GENADULT ---
HPI - General Adult General Chief complaint: Unspecified Stated complaint: PCP sent pt to ED to get US Time Seen by Provider: 08/08/22 16:14 Source: patient and family Mode of arrival: ambulatory History of Present Illness HPI narrative: Patient is 42 years old white female came from her family physician office because of discoloration of the right upper extremity, questionable deep vein thrombosis and pain on the right side of his neck. Started 2 days ago. Patient have dialysis catheter at the right upper chest June 2022. at [facility]. Patient suffered a cardiac arrest June 23, 2022 subsequently had ECMO subsequently had kidney failure. Patient started dialysis July 14, 2022, high likely will be off dialysis soon because her kidneys started working better recently. Last dialysis was 5 days ago. Patient denies any fever, chills, nausea, vomiting, chest pain, shortness of breath, back pain or focal neurodeficit Related Data Home Medications Medication Instructions Recorded Confirmed amiodarone 200 mg tablet mg 08/08/22 amlodipine 5 mg tablet mg 08/08/22 aspirin 81 mg chewable tablet 08/08/22 atorvastatin 20 mg tablet mg 08/08/22 buspirone 15 mg tablet mg 08/08/22 carvedilol 6.25 mg tablet mg 08/08/22 ferrous sulfate 325 mg (65 mg mg 08/08/22 iron) tablet (FeroSul) ondansetron 4 mg disintegrating mg 08/08/22 tablet Allergies Allergy/AdvReac Type Severity Reaction Status Date / Time azithromycin Allergy Mild Hives / Verified 08/08/22 18:16 Red Face cefuroxime Allergy Unknown Unknown Verified 08/08/22 18:16 Cephalosporins Allergy Unknown Unknown Verified 08/08/22 18:16 Penicillins Allergy Unknown Unknown Verified 08/08/22 18:16 Review of Systems Review of Systems: All systems reviewed & are unremarkable except as noted in HPI and below PMFSH Past Medical History Medical History Anxiety Pneumonia SVT (supraventricular tachycardia) Surgical History Surgical History Hx of cholecystectomy S/P tonsillectomy and adenoidectomy Family History Family History Mother Family history of lung cancer Father Heart disease Other Asthma Family history of alcoholism Family history of kidney disease Social History Social History Social History: The patient lives with her . She has 4 children. Code status full code Smoking status: Never smoker Alcohol intake: never Substance use: never Spiritual care concerns: No Exam Narrative: General appearance: Well-developed, well-nourished Skin: Normal color Head: Normocephalic, nontraumatic Eyes: Clear conjunctiva ENT: Oropharynx normal, ears normal, nose normal Neck: Supple, nontender Chest and respiratory: Airway patent, no respiratory distress, no accessory muscle use Heart: Regular rate/rhythm Abdomen: Soft, nontender, no organomegaly, quiet bowel sounds Vascular: Normal peripheral pulses, normal capillary refill. Musculoskeletal: Right upper extremity showing dark red skin, no localized tenderness, no swelling, no warmth Neurologic: Alert and oriented ?3, STAFF PHYSICAL THERAPIST is normal as tested, no gross motor deficit Course Consultations Consultation #1: Dr. Garibay, the hospitalist at [facility], declined to take patient and would like us to keep the patient in our hospital. Date: 08/08/22 Time: 20:21 Consultation #2: Dr. Sharpe Admit patient to hospitalist Date: 08/08/22 Time: 20:22 Consultation #3: Dr. Webb Date: 08/08/22 Ti
[2022-08-08 16:59] LABS: Basophils Absolute Auto 0.1 K/mm3 (0.0-0.1); Basophils Percent Auto 0.9 % (0.2-1.2); Eosinophils Absolute Auto 0.6 K/mm3 (0-0.3); Hematocrit 26.6 % (37.0-47.0); Hemoglobin 8.2 g/dL (12.0-15.0); Immature Granulocyte Absolute 0.03 K/mm3 (0.00-0.031); Immature Granulocyte Percent A 0.4 % (0-0.5); Lymphocytes Percent Auto 15.2 % (18.3-44.2); Mean Corpuscular HGB Conc 30.8 g/dl (32-36); Mean Corpuscular Hemoglobin 29.2 pg (26-34); Mean Corpuscular Volume 94.7 fl (80-100); Mean Platelet Volume 11.2 fl (7.4-10.4); Monocytes Absolute Auto 0.5 K/mm3 (0.1-0.6); Neutrophils Absolute Auto 5.5 K/mm3 (1.3-6.7); Neutrophils Percent Auto 69.5 % (45.5-73.1); Platelet Count Result 227 k/mm3 (150-375); Red Blood Count 2.81 M/mm3 (4.2-5.4); Red Cell Distribution Width 13.6 % (11.5-14.5); White Blood Count 7.9 K/mm3 (4.5-10.0)
[2022-08-08 17:03] LABS: Alanine Aminotransferase 37 U/L (6-35); Albumin Level 4.3 g/dL (3.5-5.1); Alkaline Phosphatase 64 U/L (38-126); Anion Gap 6 mmol/L (8-16); Aspartate Amino Transferase 40 U/L (14-36); Bilirubin,Total 0.5 mg/dL (0.2-1.3); Blood Urea Nitrogen 18 mg/dL (7-17); Calcium 8.9 mg/dL (8.4-10.2); Carbon Dioxide 29 mmol/L (22-30); Chloride 104 mmol/L (98-107); Estimated CRCL calculation 49 ml/min; Estimated Glomerular Filt Rate 35; Glucose 95 mg/dL (65-110); Sodium 139 mmol/L (137-145)
[2022-08-08 17:04] LABS: Partial Thromboplastin Time 29.4 SECONDS (22.3-36.8); Prothrombin Time 13.2 Seconds (11.1-14.7)
[2022-08-08] MEDS: ENOXAPARIN 100 MG/ML SYRINGE SUB-Q (18:35)
--- NOTE | 2022-08-08 22:17 | ADMGEN ---
This patient, Kirsten Neri, was admitted to 2 Medical Room 249-01. Patient/family oriented to hospital policies and general routines including ID bracelet, bed and alarms, visiting hours, pain management, procedures, bathroom and other care routines, personal items, smoking policy, room service/diet, and visiting hours. Information on how to activate the Rapid Response Team has been discussed. Patient/Family are encouraged to report perceived risks to care and to ask questions if they do not understand what they are told or what they should do.
--- NOTE | 2022-08-08 22:17 | PM.IMHP ---
H&P: HPI History of Present Illness Date/Time: 08/08/22 22:17 Chief Complaint: Swelling of right neck and arm Narrative: 42-year-old female with past medical history of obesity and recent hospitalization in May for VFib arrest of uncertain etiology with associated acute nonischemic cardiomyopathy who presented to the ER with right upper extremity swelling and right neck swelling. The patient was admitted to the hospital here on June 23 due to VFib arrest of uncertain etiology. She underwent resuscitation but was still in cardiogenic shock. She had a cardiac catheterization that same day which demonstrated no angiographic evidence of coronary artery disease but severe dilated cardiomyopathy. She had an Impella device placed and was transferred to a tertiary care and placed on ECMO. During ECMO she developed renal failure and was placed on dialysis. She has a dialysis catheter in her right upper chest. During her hospitalization at [facility] she had a pacemaker and defibrillator placed in her left chest. She reports that her last echo this past month had any EF of approximately 50%. She reports that they have been decreasing the frequency of her dialysis. Her last dialysis session was 1 week ago. The patient reports that 2 days ago she noticed her arm being somewhat discolored in feeling as if it was asleep. She denied paresthesias but stated that her arm just felt heavy. The next day her arm although still somewhat discolored did not feel heavy anymore. She then noticed some discoloration and swelling in her right neck. She denied any paresthesia, numbness, tingling. She denied any symptoms of her of her extremities. She has not had any shortness of breath or chest pain. She denies any palpitations. She has otherwise been feeling well. She was evaluated her primary care provider's office and is sent to the ER for venous Doppler of right upper extremity and neck. Imaging demonstrated partial thrombus of the right internal jugular vein. The patient was given a dose of therapeutic Lovenox. Nephrology was contacted here at our facility and recommended the patient be transferred to [facility]. ER provider called [facility] multiple times and he stated that the patient could stay here. They confirmed that the patient's hemoglobin of 8.2 is actually stable compared to her prior hospitalization. Her creatinine is down to 1.6. Reportedly the provider from [facility] discussed the case with our aircraft servicer here in the aircraft servicer here agreed to keep patient at our facility. I was subsequently called to admit the patient. The patient is obese. She states that she would not be surprised if she does snore but does not know dose of for sure. She reports that her snores so loudly that he would not be able to tell if she was snoring. She denies any excessive daytime sleepiness or fatigue prior to her her recent hospitalizations. She has never been tested for obstructive sleep apnea. She reports that while she was at [facility] for her cardiac arrest she will was noted to have iron deficiency anemia. She received Venofer in developed a generalized pruritic rash. She has been tolerating oral iron without difficulty. Her hemoglobin has remained stable. She denies any hematochezia or melena. She reports that she has been having good urine output. She denies any lower extremity swelling or orthopnea. She has not had any calf pain or tenderness. She denies history of prior blood clots. She denies a family history of blood clots. She does have a significant family history of sudden cardiac in a brother in his early 50s. She also has another brother who has already had cardiac ablation due to atrial fibrillation. Her remaining 2 brothers are in good health. She reports that her sister has multiple medical conditions but she does not think that any of her medical conditions are cardiac. She reports that she has genetic testing pending [facility] to see if she
[2022-08-08] MEDS: carvediloL 25 MG TABLET PO (23:20)
[2022-08-09] VITALS (12 sets, daily range): BP systolic 103–118; BP diastolic 53–62; PULSE 70–90; RESP 18–20; TEMP 36.6–36.9; O2SAT 96–98
[2022-08-09] MEDS: ENOXAPARIN 100 MG/ML SYRINGE 95 MG SUB-Q ×2 (05:49→17:25)
[2022-08-09 06:23] LABS: Hematocrit 24.7 % (37.0-47.0); Hemoglobin 7.7 g/dL (12.0-15.0); Mean Corpuscular HGB Conc 31.2 g/dl (32-36); Mean Corpuscular Hemoglobin 29.2 pg (26-34); Mean Corpuscular Volume 93.6 fl (80-100); Mean Platelet Volume 11.5 fl (7.4-10.4); Platelet Count Result 197 k/mm3 (150-375); Red Blood Count 2.64 M/mm3 (4.2-5.4); Red Cell Distribution Width 13.5 % (11.5-14.5); White Blood Count 5.3 K/mm3 (4.5-10.0)
[2022-08-09 06:35] LABS: Anion Gap 6 mmol/L (8-16); Blood Urea Nitrogen 16 mg/dL (7-17); Calcium 8.6 mg/dL (8.4-10.2); Carbon Dioxide 26 mmol/L (22-30); Chloride 107 mmol/L (98-107); Estimated CRCL calculation 49 ml/min; Estimated Glomerular Filt Rate 35; Glucose 102 mg/dL (65-110); Potassium 3.7 mmol/L (3.4-5.0); Sodium 139 mmol/L (137-145)
[2022-08-09] MEDS: ASPIRIN 81 MG CHEWABLE TABLET PO (09:42)
[2022-08-09] MEDS: FERROUS SULFATE 324 MG TABLET PO (09:42)
[2022-08-09] MEDS: AMIODARONE HCL 200 MG TABLET PO (09:42)
[2022-08-09] MEDS: carvediloL 25 MG TABLET PO ×2 (09:42→20:56)
--- NOTE | 2022-08-09 09:44 | PM.CNNEP ---
Assessment and Plan Assessment and plan (1) Internal jugular vein thrombosis: Qualifiers: Laterality: right Qualified Code(s): I82.C11 - Acute embolism and thrombosis of right internal jugular vein Code(s): I82.C19 - Acute embolism and thrombosis of unspecified internal jugular vein Status: Acute Assessment and Plan: The patient has an IJ thrombosis. This is surrounding a catheter. Likely the thrombosis was caused by the catheter and its attendant irritation of the IJ. we cannot pull the IJ out now because if we do I am worried that it will release a clot which might develop into a pulmonary embolism. The patient was placed on heparin. I think the patient can continue on blood thinners and talk with vascular surgery to see when her catheter should come out. Possibly there may need some time on anticoagulants to organized the clot before removing the catheter. She can remain on oral anticoagulants such as Eliquis or Coumadin until then. We do not have a vascular surgeon here so she can see 1 as an outpatient. I discussed this at length with the patient. (2) Acute renal failure on dialysis: Code(s): N17.9 - Acute kidney failure, unspecified; Z99.2 - Dependence on renal dialysis Status: Acute Assessment and Plan: The patient's creatinine has improved lately. She has not had dialysis in 5 days and her creatinine is only 1.6 and she is making some urine. Hopefully she will not need dialysis after this. (3) Ventricular fibrillation: Code(s): I49.01 - Ventricular fibrillation Status: Acute Assessment and Plan: The patient has an AICD. There have been no discharge is at home. (4) Cardiomyopathy: Code(s): I42.9 - Cardiomyopathy, unspecified Status: Acute Assessment and Plan: Her ejection fraction has improved to about 45% last time it was checked by her assignment clerk. History of Present Illness Reason for Consult Consult date: 08/09/22 Chief Complaint Chief complaint: right internal jugular partial thrombosis History of Present Illness Narrative: Kirsten is a very pleasant 42-year-old lady who has cardiomyopathy and VFib arrest. The patient presented to [facility] on June 23 with VFib arrest. She was resuscitated. She went to the ICU and had a cardiac catheterization. This revealed poor LV function and normal coronary arteries. She was hemodynamically unstable and so Impella was placed. She was then transferred to [facility] for further care. There she ended up on ECMO and was on that for a while. She developed renal failure and ended up on dialysis. Her cardiac condition eventually improved. Her ejection fraction improved to about 45% by discharge. She was still on dialysis and so was referred to [facility] in [place]. Dr. Coughlin has been taking care of her. Her labs been watched for about the last month or so and the creatinine has been improving. On Thursday she was told that she did not need to come in on Thursday or Thursday and to recheck labs on Thursday so she has not had dialysis in about 5 days. He is still making urine. She says that yesterday she developed some numbness in her right arm. She then developed pain in the right neck. She became worried about this and so went to her primary care physician who referred her to the ER because they noted is some changes in her skin color in the right arm as well as some swelling and with the patient's symptoms. In the ER she was evaluated and a venous Doppler was done which showed fresh clot in the right IJ so she was admitted. Review of Systems Constitutional: Constitutional: Reports no additional constitutional complaints Eyes: Eyes: Reports no additional eye complaints ENT: Reports system reviewed and no additional complaints, except as documented Cardiovascular: Cardiovascular: Reports no additional cardiovascular complaints Respiratory: Respiratory: Reports
--- NOTE | 2022-08-09 15:37 | PM.IMPN ---
Progress Note: A&P Assessment and Plan (1) Internal jugular vein thrombosis: Qualifiers: Laterality: right Qualified Code(s): I82.C11 - Acute embolism and thrombosis of right internal jugular vein Code(s): I82.C19 - Acute embolism and thrombosis of unspecified internal jugular vein Status: Acute Assessment and Plan: Lovenox started 08/08/2022 08/08/2022 Discussed at length with patient risk versus benefits of warfarin versus apixaban and she prefers the latter. 08/08/2022 Discussed with patient elevation of right arm and possible use of compression sleeve to minimize swelling and discoloration. Stop Lovenox after this PM's dose and begin apixaban in AM of 08/10/2022, initially at 10 mg po q 12 hr. (2) Acute renal failure on dialysis: Code(s): N17.9 - Acute kidney failure, unspecified; Z99.2 - Dependence on renal dialysis Status: Acute Assessment and Plan: 08/08/2022 creatinine 1.6 08/09/2022 creatinine 1.6 Per Nephrology she likely will not need further dialysis F/u lab (3) Iron deficiency anemia: Qualifiers: Iron deficiency anemia type: unspecified iron deficiency Qualified Code(s): D50.9 - Iron deficiency anemia, unspecified Code(s): D50.9 - Iron deficiency anemia, unspecified Status: Acute Assessment and Plan: Continue oral iron supplementation. (4) Nonischemic cardiomyopathy: Code(s): I42.8 - Other cardiomyopathies Status: Acute Assessment and Plan: Patient reports that her recent echocardiogram demonstrated stable EF around 45%. Continue patient's home amiodarone and Coreg. Hold ASA due to anticoagulation Monitor on telemetry Plan Patient has been admitted as observation status. Subjective Date/time seen: 08/09/22 15:37 Interval history: Follow-up for right internal jugular thrombus, admitted 08/08/2022. History of cardiomyopathy, ventricular fibrillation, acute kidney injury, last dialysis treatment 08/04/2022. Not scheduled for another dialysis treatment pending labs on 08/11/2022. Discoloration and swelling of right arm persist. No prior history of blood clots. Her father used to be on Coumadin but she thinks it might have been for irregular heartbeat. No chest pain or shortness of breath. Does not have menses due to IUD. No GI or bleeding otherwise. Review of Systems Review of Systems: All systems reviewed & are unremarkable except as noted in HPI and below Exam Narrative: HEENT: PERRL, sclerae nonicteric, pharyngeal mucosa pink and intact NECK: No JVD CHEST: Clear to auscultation. Normal effort. HEART: NL S1/S2, regular, no murmur ABDOMEN: BS+, soft, nontender, no mass, no bruits EXTREMITIES: Mild cyanosis and nonpitting edema of right upper extremity NEUROLOGIC: CN intact and symmetric to inspection. MUSCULOSKELETAL: Tone and strength symmetric. PSYCH: Alert. Oriented to person, place, and time. Objective Data Vital Signs Vital Signs: Vital Signs - 24 hr 08/08/22 16:00 08/08/22 17:00 08/08/22 18:00 Temperature Pulse Rate 79 83 75 Respiratory Rate 19 18 16 Blood Pressure 118/65 126/68 143/66 H Pulse Oximetry 100 100 99 08/08/22 19:00 08/08/22 19:30 08/08/22 21:41 Temperature Pulse Rate 84 82 91 Respiratory Rate 16 16 21 H Blood Pressure 146/70 H 140/69 Pulse Oximetry 100 100 99 08/08/22 21:51 08/08/22 22:07 08/08/22 23:20 Temperature 98 F Pulse Rate 87 83 85 Respiratory Rate 20 Blood Pressure 138/83 Pulse Oximetry 100 08/09/22 00:00 08/09/22 04:00 08/09/22 04:33 Temperature 97.8 F Pulse Rate 84 81 83 Respiratory Rate 20 Blood Pressure 111/60 Pulse Oximetry 98 08/09/22 10:40 08/09/22 08:00 08/09/22 12:00 Temperature 98.1 F Pulse Rate 85 90 81 Respiratory Rate 18 Blood Pressure 116/56 L Pulse Oximetry 96 08/09/22 14:00 Temperature 98.0 F Pulse Rate 85 Respiratory Rate 18 Blood Pressure 10
[2022-08-09] MEDS: ACETAMINOPHEN 325 MG TABLET 650 MG PO (22:52)
[2022-08-10] VITALS: PULSE 85
[2022-08-10 04:00] VITALS: PULSE 73
[2022-08-10 04:37] VITALS: BP 126/68; PULSE 79; RESP 20; TEMP 36.9; O2SAT 97
[2022-08-10 04:37] LABS: Hematocrit 24.7 % (37.0-47.0); Hemoglobin 7.6 g/dL (12.0-15.0)
[2022-08-10 04:48] LABS: Albumin Level 3.9 g/dL (3.5-5.1); Anion Gap 6 mmol/L (8-16); Blood Urea Nitrogen 16 mg/dL (7-17); Calcium 8.7 mg/dL (8.4-10.2); Carbon Dioxide 25 mmol/L (22-30); Chloride 108 mmol/L (98-107); Estimated CRCL calculation 49 ml/min; Estimated Glomerular Filt Rate 35; Glucose 96 mg/dL (65-110); Phosphorus 4.5 mg/dL (2.5-4.5); Potassium 3.9 mmol/L (3.4-5.0); Sodium 139 mmol/L (137-145)
[2022-08-10 08:00] VITALS: PULSE 86
--- NOTE | 2022-08-10 08:32 | PM.PNNEP ---
Progress Note: A&P Assessment and Plan (1) Internal jugular vein thrombosis: Qualifiers: Laterality: right Qualified Code(s): I82.C11 - Acute embolism and thrombosis of right internal jugular vein Code(s): I82.C19 - Acute embolism and thrombosis of unspecified internal jugular vein Status: Acute Assessment and Plan: The patient has an IJ thrombosis. she is currently on anticoagulants. She was on heparin before and is now on Eliquis. Okay for discharge later today to follow up with the vascular surgeon / interventional radiologist.. Patient does labs tomorrow at [facility] and the results should be back by Thursday so she will call or for the results. she will call if she gets swelling or shortness of breath. (2) Acute renal failure on dialysis: Code(s): N17.9 - Acute kidney failure, unspecified; Z99.2 - Dependence on renal dialysis Status: Acute Assessment and Plan: The patient's creatinine has improved lately. Her creatinine stable at 1.6. Hopefully she will not need dialysis anymore. (3) Ventricular fibrillation: Code(s): I49.01 - Ventricular fibrillation Status: Acute Assessment and Plan: The patient has an AICD. There have been no discharge is at home. (4) Cardiomyopathy: Code(s): I42.9 - Cardiomyopathy, unspecified Status: Acute Assessment and Plan: Her ejection fraction has improved to about 45% last time it was checked by her manager java. Subjective Date/time seen: 08/10/22 08:32 Interval history: Patient is feeling better today. Right arm is a little less swollen and a little less mottled. Still some discomfort near the shoulder. Review of Systems Cardiovascular: Cardiovascular: Reports no additional cardiovascular complaints Respiratory: Respiratory: Reports no additional respiratory complaints Gastrointestinal: Gastrointestinal: Reports no additional gastrointestinal complaints Genitourinary: Genitourinary: Reports no additional female genitourinary complaints Exam Narrative: WDWN in NAD skin no rash head ncat lungs clear cor reg no rub abd BS+ nontender and soft ext no edema. Still minimal color changes but this seems better Objective Data Vital Signs Vital Signs: Vital Signs - 24 hr 08/09/22 10:40 08/09/22 12:00 08/09/22 14:00 Temperature 98.1 F 98.0 F Pulse Rate 85 81 85 Respiratory Rate 18 18 Blood Pressure 116/56 L 103/53 L Pulse Oximetry 96 98 08/09/22 16:00 08/09/22 13:40 08/09/22 19:29 Temperature 98.0 F 98.4 F Pulse Rate 70 85 90 Respiratory Rate 18 20 Blood Pressure 103/53 L 118/62 Pulse Oximetry 98 98 08/09/22 20:56 08/09/22 20:00 08/10/22 00:00 Temperature Pulse Rate 80 85 85 Respiratory Rate Blood Pressure Pulse Oximetry 08/10/22 04:00 08/10/22 04:37 Temperature 98.4 F Pulse Rate 73 79 Respiratory Rate 20 Blood Pressure 126/68 Pulse Oximetry 97 Intake/Output Intake/Output: Intake & Output 08/07/22 08/08/22 08/09/22 08/10/22 23:59 23:59 23:59 23:59 Intake Total 2520 300 Output Total 1000 1000 Balance 1520 -700 Meds/Results Medications: Active Medications Generic Name Dose Route Start Last Admin Trade Name Freq PRN Reason Stop Dose Admin Acetaminophen 650 mg 08/08/22 20:18 08/09/22 22:52 Acetaminophen 325 Mg Tablet PO 650 mg Q4H PRN Administration Mild Pain (1-3) or Fever Amiodarone HCl 200 mg 08/09/22 09:00 08/09/22 09:42 Amiodarone Hcl 200 Mg Tablet PO 200 mg DAILY [place] Administration Apixaban 10 mg 08/10/22 09:00 Apixaban 5 Mg Tablet PO Q12HR [place] Buspirone HCl 15 mg 08/08/22 22:34 Buspirone Hcl 5 Mg Tablet PO BID PRN Anxiety Carvedilol 25 mg 08/08/22 23:00 08/09/22 20:56 Carvedilol 25 Mg Tablet PO 25 mg Q12HR [place] Administration Enoxaparin Sodium 95 mg 08/09/22 06:00 08/09/22
[2022-08-10] MEDS: AMIODARONE HCL 200 MG TABLET PO (08:56)
[2022-08-10] MEDS: APIXABAN 5 MG TABLET 10 MG PO (08:56)
[2022-08-10] MEDS: FERROUS SULFATE 324 MG TABLET PO (08:56)
[2022-08-10] MEDS: carvediloL 25 MG TABLET PO (08:56)
--- NOTE | 2022-08-10 09:29 | PM.DS ---
DS: Admitting Diagnosis Discharge Date 08/10/2022 Admitting Diagnosis Right internal jugular vein thrombus DS: Discharge Diagnosis Discharge Diagnosis (1) Internal jugular vein thrombosis: Qualifiers: Laterality: right Qualified Code(s): I82.C11 - Acute embolism and thrombosis of right internal jugular vein Code(s): I82.C19 - Acute embolism and thrombosis of unspecified internal jugular vein Status: Acute Assessment and Plan: Lovenox started 08/08/2022 08/08/2022 Discussed at length with patient risk versus benefits of warfarin versus apixaban and she prefers the latter. 08/08/2022 Discussed with patient elevation of right arm and possible use of compression sleeve to minimize swelling and discoloration. Stopped Lovenox after this 08/19/22 PM's dose and began apixaban in AM of 08/10/2022, initially at 10 mg po q 12 hr. x 7 days, then 5 mg bid She will f/u with PCP, nephrology, and vascular surgery at [place] to discuss removal of dialysis catheter and duration of anticoagulation (2) Acute renal failure on dialysis: Code(s): N17.9 - Acute kidney failure, unspecified; Z99.2 - Dependence on renal dialysis Status: Acute Assessment and Plan: 08/08/2022 creatinine 1.6 08/09/2022 creatinine 1.6 08/10/2022 creatinine 1.6 Per Nephrology she likely will not need further dialysis F/u lab due 08/11 as outpatient (3) Iron deficiency anemia: Qualifiers: Iron deficiency anemia type: unspecified iron deficiency Qualified Code(s): D50.9 - Iron deficiency anemia, unspecified Code(s): D50.9 - Iron deficiency anemia, unspecified Status: Acute Assessment and Plan: Continue oral iron supplementation. (4) Nonischemic cardiomyopathy: Code(s): I42.8 - Other cardiomyopathies Status: Acute Assessment and Plan: Patient reports that her recent echocardiogram demonstrated stable EF around 45%. Continue patient's home amiodarone and Coreg. Hold ASA due to anticoagulation Monitor on telemetry Plan Patient has been admitted as observation status. DS: Summary Hospital Course Reason for hospitalization: Right arm swelling and discomfort Hospital Course: Presented to the emergency room because of right arm swelling and discomfort. Venous Doppler showed partially occlusive thrombus of the right internal jugular vein. She was started on therapeutic Lovenox. Creatinine remained stable at 1.6. She was transition to Eliquis 10 mg twice daily for 1 week then 5 mg twice daily. She had no bleeding. She has an IUD so does not have menstrual periods. She had no chest pain or shortness of breath. No AICD discharges while inpatient or while at home. She was instructed return to emergency department if she had chest pain shortness of breath AICD discharge or increased arm swelling or discomfort. Time Spent with Patient Time attestation: Total time spent providing and/or coordinating discharge services:35 min Time spent: Greater than 30 minutes Exam Narrative: HEENT: PERRL, sclerae nonicteric, pharyngeal mucosa pink and intact NECK: No JVD CHEST: Clear to auscultation. Normal effort. HEART: NL S1/S2, regular, no murmur ABDOMEN: BS+, soft, nontender, no mass, no bruits EXTREMITIES: Mild erythema and nonpitting edema of right upper extremity NEUROLOGIC: CN intact and symmetric to inspection. MUSCULOSKELETAL: Tone and strength symmetric. PSYCH: Alert. Oriented to person, place, and time. DS: Data Data Completed and Pending Labs on day of discharge: Labs from last 24 hours 08/10/22 04:29 Hgb 7.6 L Hct 24.7 L Sodium 139 Potassium 3.9 Chloride 108 H Carbon Dioxide 25 Anion Gap 6 L BUN 16 Creatinine 1.60 H Estim Creat Clear Calc 49 Estimated GFR 35 L Glucose 96 Calcium 8.7 Phosphorus 4.5 Albumin 3.9 Preliminary micro results at discharge 08/09/22 00:42 Blood Culture - Preliminary Blood
== END 2022-08-10 11:02 | disposition home or self-care (01) ==
LOC: ANHED 18:25 → ANH2MED 08-09 05:29
PROVIDERS: Internal Medicine Nephrology; Admitting Provider Internal Medicine; Emergency Provider Emergency Medicine; PCP Internal Medicine; Visit Provider Internal Medicine
DX: I82.C11 Acute embolism and thrombosis of right internal jugular vein (principal); N17.9 Acute kidney failure, unspecified; Z99.2 Dependence on renal dialysis; D50.9 Iron deficiency anemia, unspecified; I42.8 Other cardiomyopathies; E66.9 Obesity, unspecified; Z68.34 Body mass index [BMI] 34.0-34.9, adult; F41.9 Anxiety disorder, unspecified; I47.1 Supraventricular tachycardia; Z90.49 Acquired absence of other specified parts of digestive tract; Z95.810 Presence of automatic (implantable) cardiac defibrillator; Z87.01 Personal history of pneumonia (recurrent); Z86.74 Personal history of sudden cardiac arrest; Z79.82 Long term (current) use of aspirin; Z79.899 Other long term (current) drug therapy; Z82.49 Family history of ischemic heart disease and other diseases of the circulatory system; Z84.1 Family history of disorders of kidney and ureter
CPT/HCPCS: 36415; 80048; 80053; 80069; 85014; 85018; 85025; 85027; 85610; 85730; 87040; 93971; 96372; 99285; A9270; G0378; J1650

== ENCOUNTER 2024-09-08 14:39 | Outpatient (CLI) | payer BC, SELFPAY ==
--- NOTE | 2024-09-08 | ECG_ITS ---
Test Date: 2024-09-08 15:01:58 Measurements Intervals [place] Rate: 108 P: 42 AK: 178 QRS: 25 QRSD: 80 T: 54 QT: 330 QTc: 443 Interpretive Statements SINUS TACHYCARDIA ABNORMAL RHYTHM ECG No previous ECG available for comparison Electronically Signed On 09-09-2024 07:14:30 CDT by Tim Giron M.D.
--- OUTSIDE RECORDS SUMMARY | 2024-09-08 14:45 | XMS_ITS | Referral Summary ---
Author Organization [facility] Address [address] [place] [address] Care Team Providers Care Entertainment Production Professional Name Role Phone Byron Barraza MD Primary Care Provider [phone] Darius Tinsley MD Unavailable [phone] Unknown, Notinfile Unavailable Unavailable Encounters Date Type Department Care Team Description 07/12/2024 7:15 PM CDT Office Visit [facility] at [address] [address] German Alexis NP Right acute serous otitis media, recurrence not specified (Primary Dx) from Last 3 Months Allergies Active Allergy Reactions Criticality Noted Date Comments Azithromycin Other (See comments),Rash Medium 11/12/19 18 Cefuroxime Rash Medium 11/11/2017 Cephalosporins Hives,Other (See comments),Rash Medium 10/01/1999 Iron Sucrose Hives Medium 08/15/2022 Penicillin Rash Medium 11/11/2017 Penicillins Hives,Rash Medium 10/01/1987 Medications busPIRone (BUSPAR) 7.5 mg tablet Takes as needed Acti ve acetaminophen 500 mg capsuleIndicatio ns:Pain Take 2 capsules (1,000 mg total) by mouth every 6 (six) hours as needed for pain for up to 5 doses 30 tablet 07/09/19 23 Active amiodarone (PACERONE) 200 mg tabletIndication s:Prevention of Recurrent Atrial Fibrillation Take 1 tablet (200 mg total) by mouth daily 30 tablet 07/10/19 23 Active docusate sodium (COLACE) 100 mg capsuleIndicatio ns:constipation Take 1 capsule (100 mg total) by mouth 2 (two) times a day as needed for constipation 30 capsule 07/09/19 23 Active apixaban (ELIQUIS) 5 mg tablet Take 1 tablet (5 mg total) by mouth 2 (two) times a day 08/18/19 23 Active losartan (COZAAR) 25 mg tablet 08/21/19 23 Active carvediloL (COREG) 25 mg tablet Take 1 tablet (25 mg total) by mouth 2 (two) times a day 08/16/19 23 Active ferrous sulfate 325 mg (65 mg of elemental iron) tabletIndication s:Iron Deficiency Anemia Take 1 tablet (325 mg total) by mouth 2 (two) times a day Active atorvastatin (LIPITOR) 20 mg tablet Take 1 tablet (20 mg total) by mouth nightly 11/05/19 24 Active azelastine (ASTELIN) 137 mcg (0.1 %) nasal spray Administer 2 sprays into affected nostril(s) 2 (two) times a day as needed 11/20/19 24 Active gabapentin (NEURONTIN) 100 mg capsule Take 1 capsule (100 mg total) by mouth 3 (three) times a day Active levothyroxine (SYNTHROID) 25 mcg tablet Take 1 tablet (25 mcg total) by mouth daily Active polymyxin B-trimethoprim (POLYTRIM) ophthalmic solution INSTILL 1 DROP INTO RIGHT EYE EVERY 4 HOURS FOR 7 DAYS 11/20/19 24 Active Wegovy 1 mg/0.5 mL auto-injector INJECT 1MG SUBCUTANEOUSLY ONE TIME PER WEEK Active fluticasone propionate (FLONASE) 50 mcg/actuation nasal sprayIndications :Right acute serous otitis media, recurrence not specified Administer 2 sprays into each nostril daily 1 each 07/13/19 25 Active Active Problems Problem Noted Date Diagnosed Date Thrombosis of internal jugular vein 09/03/2022 Assessment & Plan (09/03/2022 9:32 AM CDT): Discussed recommendation for catheter removal and continuation of her anticoagulation. Cardiac arrest with ventricular fibrillation 04/2022 Assessment & Plan (07/07/2022 10:58 AM CDT): Witnessed V fib arrest at home. To OSH, [facility] with clean coronaries. Impella CP placed and transferred to CCU. Worsening cardiogenic shock on arrival, cannulated for VA-ECMO. No pulsatility initially, but improved pulsatility today. Currently on no inotropes or pressors. (06/26): VA ECMO decannulation and Impella removal -monitor daily EKG, QTc 546 today (down from 555 yesterday) -Continue Amio to 200mg daily per Dr. Tinsley -monitor telemetry -plan for ICD today with EP -Continue PT/OT -SQH for DVT ppx Lower limb ischemia 07/02/2022 Assessment & Plan (07/06/2022 10:09 AM CDT): Arrived from OSH with pulseless RLE, Impella CP in R groin. Vascular surgery consulted. Improved color in distal extremities with bilateral distal reperfusion cannulas in place. (06/26): VA ECMO decannulation and Impella removal -Monitor right groin prevena -Continue neurovascular checks Vascular following and wound vac removed - incision BURR GRINDER and without redness or drainage Pulses palpable Using walker for stability Will continue to monitor Acute kidney injury 07/02/2022 Assessment & Plan (09/03/2022 9:32 AM CDT): Her kidney function has recovered, risks benefits alternatives to catheter removal discussed, she wished to proceed. We will get her set up through our dialysis access center. Assessment & Plan (07/08/2022 12:42 PM CDT): Likely in the setting of cardiac arrest -Monitor daily BMP, Cr 5.88 -Patient reports minimal UO -Avoid nephrotoxins -Renally dose medications -Nephrology consulted and following, appreciate recs -IR placed tunneled HD cath in right upper chest -Renal SW setting up OP HD on /Thu- patient would prefer M-W-F now Plan for dc when ICD placed Discuss with lindsay/SWl the plan for M-W-F HD at discharge and OP plan Plan for HD today for electrolyte and fluid management -Discharge pending on outpatient HD being set up Cough 07/02/2022 Assessment & Plan (07/03/2022 12:48 PM CDT): Hx of acute respiratory hypoxic failure in setting of cardiac arrest Intubated on arrival to OSH. Bronch 06/24 with minimal secretions. 06/27: extubated to opiflow 50/50 -remains on RA -monitor O2 Sats -aggressive pulmonary hygiene/IS -Continues with cough, 07/02 CXR stable -07/02 2V CXR: Small bilateral pleural effusions, better seen on the lateral projection. Cardiac contours are unchanged. No focal consolidation, with minimal bibasilar atelectasis. -Continue Tesslon Perles PRN Acute blood loss anemia 07/02/2022 Assessment & Plan (07/07/2022 11:05 AM CDT): -Anemia likely multifactorial -monitor daily CBC, hgb 7.9 -no active signs of bleeding -transfusion if hgb <7 and symptomatic -consider iron supplementation and multivitamin Hypertension 07/02/2022 Assessment & Plan (09/03/2022 9:32 AM CDT): Stable continue amlodipine 5 mg. Assessment & Plan (07/07/2022 11:06 AM CDT): -Monitor Q4H VS -Continue Amlodipine and Carvedilol -Continue low sodium diet Heart failure 07/02/2022 Assessment & Plan (07/04/2022 12:59 PM CDT): -Emergency heart cath s/p cardiac arrest with severely reduced LVEF 15% -06/27 TTE: Grossly normal LV and RV size with mildly reduced segmental LV systolic function w/ estimated EF=50% and hypok.of anteroseptal wall. LA is normal. Normal Inferior vena cava.Normal aorta -Continue Carvedilol at 12.5mg BID, titrate as tolerable -HF team consulted and following for GDMT, appreciate recs Recommendations: - Continue BB therapy and titrate up as tolerated. - ACEI/ARNI/SGLT2i/MRA limited by renal function. - Favor Hydral/Isordil for afterload reduction before other antihypertensives. - Would recommend genetic testing for familial cardiomyopathy or channelopathy. Cardiogenic shock 06/24/2022 Assessment & Plan (07/02/2022 2:57 PM CDT): s/p v-fib cardiac arrest Resolved Fibrocystic breast changes 10/28/2021 Resolved Problems Problem Noted Date Diagnosed Date Resolved Date Dysphagia 07/02/2022 07/06/2022 Assessment & Plan (07/04/2022 1:00 PM CDT): -Speech evaluated patient yesterday, no indication for swallow study -Can re-consult speech if symptoms worsen and swallow study can be completed. Tolerating diet today Social History Tobacco Use Types Packs/Day Years Used Date Smoking Tobacco: Never Smokeless Tobacco: Never Tobacco Cessation:Counseling Given: Not Answered AUDIT-C Answer Date Recorded Q1: How often do you have a drink containing alcohol? Never 07/07/2022 Q2: How many drinks containi ng alcohol do you have on a typical day when you are drinking? Patient does not drink Q3: How often do you have si x or more drinks on one occasion? Never 07/07/2022 Personal Safety Answer Date Recorded Have you ever been in or are you currently in a harmful physical or emotional relationship or is someone making you feel afraid or unsafe? Denies 09/09/2022 Comments No Sex and Gender Information Value Date Recorded Sex Assigned at Not on file Legal Sex Female 11:43 AM [employer] SUPER[employer] Gender Identity Not on file Sexual Orientation Not on file Last Filed Vital Signs Vital Sign Reading Time Taken Comments Blood Pressure 97/63 07/12/2024 7:15 PM CDT Pulse 102 07/12/2024 7:15 PM CDT Temperature 36.3 C (97.3 F) 07/12/2024 7:15 PM CDT Respiratory Rate 18 07/12/2024 7:15 PM CDT Oxygen Saturation 98% 07/12/2024 7:15 PM CDT Inhaled Oxygen Concentration - - Weight 92.5 kg (204 lb) 07/12/2024 7:15 PM CDT Height 167.6 cm (5' 6) 12/18/2023 10:59 AM CDT Body Mass Index 32.93 12/18/2023 10:59 AM CDT Plan of Treatment Not on file Medical Devices Implanted Type Area Ground Operations Superintendent Device Identifier Shelf Expiration Date Model / Serial / Lot Resource [employer] Inc Sprint Quattro Secure S 55cm Df-4 Tripolar Screw Defibrillator [id number] - [id number] - [id number] Implanted:Qty: 1 on 07/07/2022 by Arsenio Mcneil MD PhD at [facility] Lead Med[employer] Inc 04/23/2024 [id number] / [id number] / Medtronic Inc Capsurefix Novus 6.2fr 2mm 45cm Bipolar Screw In Implantable 5076-45 - [id number] - [id number] Implanted:Qty: 1 on 07/07/2022 by Arsenio Mcneil MD PhD at [facility] Lead Med[employer]onic Inc 05/13/2024 [id number] / [id number] 1V / [id number] Medtronic Inc Tyrx Absorbable Antibacterial Envelope-Large 3.3x2.9in [id number] - [id number] - [id number] Implanted:Qty: 1 on 07/07/2022 by Arsenio Mcneil MD PhD at [facility] Other - see comments Left: Chest Wall Medtronic Inc 04/18/2023 [id number] / [id number] / [id number] Medtronic Inc [address] [address] Icd Lucas Mesaohcharissa Df4 [id number] - [id number] - [id number] Implanted:Qty: 1 on 07/07/2022 by Barb Carrasco MD at [facility] Pacemaker Left: Chest Wall Medtronic Inc 08/28/2023 [id number] / [id number] / [id number] [employer] Jean-Claude Vascu-Guard 8x.8cm Peripheral Patch Vascular Bovine Pericardium [id number] - [id number] Implanted:Qty: 1 on 06/26/2022 by Darius Tinsley MD at [facility] Right: Groin [employer] Jean-Claude [id number] 04/18/2023 [id number] / / [id number]- [id number] Man Vascular Device Clsr Perclose Prostyle Sut-Mediatd Closure-Repair Sys [id number] - [id number] Implanted:Qty: 1 on 06/26/2022 by Darius Tinsley MD at [facility] Right: Groin Man Vascular 04/01/2024 [id number] / [id number] Insurance [employer] ID [employer] ID [employer] CHOICE ID Advance Directives For more information, please contact: [phone] * Full Code (Latest Code Status on File) Date Activated Date Inactivated Comments 06/24/2022 4:18 AM 07/08/2022 11:43 PM Care Teams Entertainment Production Professional Relationship Specialty Start Date End Date Byron Barraza MD [address] [place] [address] PCP - General Internal Medicine 10/01/21 Darius Tinsley MD [address] [place] [address] Consulting Physician Cardiothoracic Surgery 07/08/22 Unknown, Notinfile 07/08/22
--- OUTSIDE RECORDS SUMMARY | 2024-09-08 14:45 | XMS_ITS | Encounter Summary ---
Author Organization [facility] Address [address] [place] [address] Care Team Providers Care Power Transformer Repair Supervisor Name Role Phone Byron Barraza MD Primary Care Provider [phone] Encounter Details Date Type Department Care Team (Latest Contact Info) Description 01/11/2021 MyChart Message Enc [place] [address] [address] [address] [place] [address] Byron Barraza MD [address] [place] [address] [phone] follow up appointment Social History Tobacco Use Types Packs/Day Years Used Date Smoking Tobacco: Never Smokeless Tobacco: Never Comments:by Dr Barraza Alcohol Use Standard Drinks/Week Comments Not Currently 0 (1 standard drink = 0.6 oz pur e alcohol) PHQ-2 Answer Date Recorded PHQ-2 Score - If the patient scores above 3, please move on to questions 3-9 6 07/27/2020 Comments No Sex and Gender Information Value Date Recorded Sex Assigned at Female 05/10/2024 9:47 AM CDT Legal Sex Female 4:03 PM CDT Gender Identity Female 05/10/2024 9:47 AM CDT Sexual Orientation Straight 05/10/2024 9: 47 AM CDT documented as of this encounter Plan of Treatment Upcoming Encounters Date Type Department Care Team (Late st Contact Info) Description 09/14/2024 10:20 AM CDT Laboratory Only [address] [place] [address] Byron Barraza MD [address] [address] 11/14/2024 10:20 AM CDT Office Visit [facility] Medical Group Multispecialty Care - [place] [address] [address] [place] [address] Byron Barraza MD [facility] [address] [address] documented as of this encounter Visit Diagnoses Not on filedocumented in this encounter Additional Health Concerns Infection Onset Date Last Indicated Resolved Time COVID-19 Rule Out 12/28/2023 12/28/2023 12/28/2023 1:04 PM CDT Influenza - Seasonal 12/28/2023 12/28/2023 024 12:32 AM CANNERY TENDER ENGINEER Assessment Noted Time PHQ-9 Depression Total Score: 17 021 10:42 AM CDT documented as of this encounter Care Teams Power Transformer Repair Supervisor Relationship Specialty Start Date End Date Byron Barraza MD [address] [place] [address] PCP - General INTERNAL MEDICINE 06/25/20 documented as of this encounter
--- OUTSIDE RECORDS SUMMARY | 2024-09-08 14:45 | XMS_ITS | Clinical Summary ---
Author Organization [facility] Address [address] [place] [address] Phone Care Team Providers Care Pest Control Specialist Name Role Phone Nohemi Carver Primary Care Provider [phone] Social History Tobacco Use Types Packs/Day Years Used Date Smoking Tobacco: Never Assessed Comments Unknown Sex and Gender Information Value Date Recorded Sex Assigned at Not on file Legal Sex Female 11:01 AM CDT Gender Identity Not on file Sexual Orientation Not on file Plan of Treatment Health Maintenance Due Date Last Done Comments DTAP/TDAP/TD VACCINES (1 - Tdap) 1999 HEPATITIS B VACCINES (1 of 3 - 19+ 3-dose series) 1999 HPV/Cotest (21-29) 2001 HPV/Cotest (30-65) 2010 CERVICAL CANCER SCREENING 01/14/2019 PAP SMEAR 01/14/2019 01/15/2016 BREAST CANCER SCREENING 2020 INFLUENZA VACCINE (#1) 2024 HPV VACCINES Aged Out No longer eligi ble based on patient's age to complete this topic Insurance [facility] [employer] ACCESS CHOICE Care Teams Pest Control Specialist Relationship Specialty Start Date End Date Nohemi Carver PA PCP - General Physician Entertainer Or Variety Artist 10/29/17
--- OUTSIDE RECORDS SUMMARY | 2024-09-08 14:45 | XMS_ITS ---
Author Organization [facility] Address [address] [place] [address] Care Team Providers Care It Technical Specialist Name Role Phone Byron Barraza MD Primary Care Provider [phone] Darius Tinsley MD Unavailable [phone] Unknown, Notinfile Unavailable Unavailable Dialysis Access Sites Type Status Location Placement Date Removal Da te Hemodialysis Cath Double 07/03/22 Tunneled catheter Right Internal Jugular Inactive Right Neck (side) - Anterior 07/03/2022 09/09/2022 Hemodialysis Cath Triple 06/26/22 Left Internal Jugular Inactive Left Neck (side) - Anterior 06/26/2022 07/03/2022 Allergies Active Allergy Reactions Criticality Noted Date [...] up to 5 doses 30 tablet 07/09/19 Active amiodarone (PACERONE) 200 mg tabletIndication s:Prevention [...] V fib arrest at home. To OSH, [facility] with clean coronaries. Impella CP placed and [...] following and wound vac removed - incision ASHTYN and without redness or drainage Pulses palpable [...] cardiac arrest Resolved Fibrocystic breast changes 10/28/2021 Social History Tobacco Use Types Packs/Day Years [...] on file Legal Sex Female 11:43 AM BEHAVIORAL SCIENTIST Gender Identity Not on file Sexual Orientation [...]
--- OUTSIDE RECORDS SUMMARY | 2024-09-08 14:45 | XMS_ITS | Clinical Summary ---
Author Organization [facility] Address [address] [place] [address] Care Team Providers Care Manufacturing Design Engineer Name Role Phone Byron Barraza MD Primary Care Provider [phone] Darius Tinsley MD Unavailable [phone] Unknown, Notinfile Unavailable Unavailable Allergies Active Allergy Reactions Criticality Noted Date [...] V fib arrest at home. To OSH, [facility] with clean coronaries. Impella CP placed [...] -Renal SW setting up OP HD on //Thu- patient would prefer M-W-F now Plan for dc when ICD placed Discuss with lindsay/SHONDAl the plan for M-W-F HD at discharge [...] hygiene/IS -Continues with cough, 07/02 CXR stable -5/3 2V CXR: Small bilateral pleural effusions, better [...] study can be completed. Tolerating diet today Encounters Date Type Department Care Team Description 07/12/2024 7:15 PM CDT Office Visit [facility] Medical Group [facility] Care at [address] [address] German Alexis NP Right acute serous otitis media, recurrence not specified (Primary Dx) from Last 3 Months Surgical History Surgery Date Site/Laterality Comments TONSILLECTOMY CHOLECYSTECTOMY 2000 CARDIAC CATHETERIZATION 06/23/2022 TUNNELED LINE PLACEMENT > 5 YEARS 07/03/2022 N/A Medical History Medical History Date Comments Hypertension Overweight HLD (hyperlipidemia) SVT (supraventricular tachycardia) Cardiac arrest with ventricular fibrillation (HC C) 06/23/2022 Anxiety Peripheral neuropathy Family History Medical History Relation Name Comments Arthritis Father Shelton Bustillo Family history of arthritis - (Added by TW Conv) Heart disease Father Shelton Bustillo Family history of cardiac disorder - (Added by TW Conv) Cancer Mother Rajesh Bustillo Family history of malignant neoplasm - (Added by TW Conv) Lung cancer Mother Rajesh Bustillo Anesthesia problems Neg Hx Relation Name Status Comments Father Shelton Bustillo Mother Rajesh Bustillo Social History Tobacco Use Types Packs/Day Years [...] on file Legal Sex Female 11:43 AM FORMING PROCESS WORKER Gender Identity Not on file Sexual Orientation Not on file Obstetrics History Last Filed Vital Signs Vital Sign Reading [...] 12/18/2023 10:59 AM CDT Plan of Treatment Health Maintenance Due Date Last Done Comments Breast Cancer Screening-Mammogram 1980 Cervical Cancer Screening 1980 Depression Screening 1980 Hepatitis C Screening 1980 Varicella Vaccines (1 of 2 - 13+ 2-dose series) 1993 Regular Well Visit/Exam 18-64 1998 DTaP/Tdap/Td Vaccine (2 - Td or Tdap) 01/28/2029 01/28/2019 Hepatitis B Screening Completed 07/01/2022 Influenza Vaccine Completed 01/12/2024, 03/20/2021 HPV Vaccines Aged Out No longer eligi ble based on patient's age to complete this topic Pneumococcal vaccine <65 Aged Out No longer eligible based on patient's age to complete this topic Medical Devices Implanted Type Area Screening Representative Device Identifier Shelf Expiration Date Model / Serial / Lot Medtronic Inc Sprint Quattro Secure S 55cm Df-4 Tripolar Screw Defibrillator [id number] - [id number] - [id number] Implanted:Qty: 1 on 07/07/2022 by Arsenio Mcneil MD PhD at [facility] Lead Med[employer] Inc 04/23/2024 [id number] / [id number] / Medtronic Inc Capsurefix Novus 6.2fr 2mm 45cm Bipolar Screw In Implantable [id number] - [id number] - [id number] Implanted:Qty: 1 on 07/07/2022 by Arsenio Mcneil MD PhD at [facility] Lead [employer] Inc 05/13/2024 [id number] / [id number] / [id number] Med[employer]onic Inc Tyrx Absorbable Antibacterial Envelope-Large 3.3x2.9in [id number] - [id number] - [id number] Implanted:Qty: 1 on 07/07/2022 by Arsenio Mcneil MD PhD at [facility] Other - see comments Left: Chest Wall Med[employer]onic Inc 04/18/2023 [id number] / [id number] / [id number] Medtronic Inc [place] Dr Icd Mri Surescan Df4 [id number] - [id number] - [id number] Implanted:Qty: 1 on 07/07/2022 by Barb Carrasco MD at [facility] Pacemaker Left: Chest Wall Medtronic Inc 08/28/2023 [id number] / [id number] / [id number] [employer] Jean-Claude Vascu-Guard 8x.8cm Peripheral Patch Vascular Bovine Pericardium [id number] - [id number] Implanted:Qty: 1 on 06/26/2022 by Darius Tinsley MD at [facility] Right: Groin [employer] Jean-Claude [id number] 04/18/2023 [id number] / / [id number] Man Vascular Device Clsr Perclose Prostyle Sut-Mediatd Closure-Repair Sys [id number] - [id number] Implanted:Qty: 1 on 06/26/2022 by Darius Tinsley MD at [facility] Right: Groin Man Vascular 04/01/2024 [id number] / / [id number] Insurance [facility] [employer] [place] Advance Directives For more information, please contact: [phone] * Full Code (Latest Code Status on File) Date Activated Date Inactivated Comments 06/24/2022 4:18 AM 07/08/2022 11:43 PM Care Teams Manufacturing Design Engineer Relationship Specialty Start Date End Date Byron Barraza MD [address] [place] [address] PCP - General Internal Medicine 10/01/21 Darius Tinsley MD [address] [place] [address] Consulting Physician Cardiothoracic Surgery 07/08/22 Unknown, Notinfile 07/08/22
--- OUTSIDE RECORDS SUMMARY | 2024-09-08 14:46 | XMS_ITS | Encounter Summary ---
Author Organization [facility] Address [address] [place] [address] Care Team Providers Care Private Chef Name Role Phone Byron Barraza MD Primary Care Provider [phone] Encounter Details Date Type Department Care Team (Latest Contact Info) Description 06/18/2021 MyChart Message Enc [facility] Medical Group Multispecialty Care - [place] [address] [place] [address] [address] [place], [place] [id number] [place] [address] [place] [address] 157 [place], [place] [phone] Litaglutide prescription Social History Tobacco Use Types Packs/Day Years Used Date Smoking Tobacco: Never Smokeless Tobacco: Never Comments:by Dr Barraza Alcohol Use Standard Drinks/Week Comments Not Currently 0 (1 standard drink = 0.6 oz pur e alcohol) PHQ-2 Answer Date Recorded PHQ-2 Score - If the patient scores above 3, please move on to questions 3-9 0 04/17/2021 Comments No Sex and Gender Information Value Date Recorded Sex Assigned at Female 05/10/2024 9:47 AM CDT Legal Sex Female 4:03 PM CDT Gender Identity Female 05/10/2024 9:47 AM CDT Sexual Orientation Straight 05/10/2024 9: 47 AM CDT COVID-19 Exposure Response Date Recorded In the last 10 days, have yo u been in contact with someone who was confirmed or suspected to have Coronavirus/COVID-19? No / Unsure 05/29/2021 9:31 AM CDT documented as of this encounter Plan of Treatment Upcoming Encounters Date Type Department Care Team (Late st Contact Info) Description 09/14/2024 10:20 AM CDT Laboratory Only [facility] Medical Group Multispecialty [facility] - [place] [address] [address] [place] [address] Byron Barraza MD [address] [address] 11/14/2024 10:20 AM CDT Office Visit [facility] Medical [facility] Multispecialty [facility] - [address] [place] [address] Byron Barraza MD [facility] [address] [address] documented as of this encounter Visit Diagnoses Not on filedocumented in this encounter Additional Health Concerns Infection Onset Date Last Indicated Resolved Time COVID-19 Rule Out 12/28/2023 12/28/2023 12/28/2023 1:04 PM CDT Influenza - Seasonal 12/28/2023 12/28/2023 024 12:32 AM DIRECTOR OF CARDIOLOGY SERVICE LINE Assessment Noted Time PHQ-9 Depression Total Score: 0 04/17/19 22 9:52 AM DIRECTOR OF CARDIOLOGY SERVICE LINE documented as of this encounter Care Teams Private Chef Relationship Specialty Start Date End Date Byron Barraza MD [address] [place] [address] PCP - General INTERNAL MEDICINE 06/25/20 documented as of this encounter
--- OUTSIDE RECORDS SUMMARY | 2024-09-08 14:46 | XMS_ITS | Encounter Summary ---
Author Organization [facility] Address [address] [place] [address] Care Team Providers Care Linen Checker Name Role Phone Byron Barraza MD Primary Care Provider [phone] Encounter Details Date Type Department Care Team (Late Contact Info) Description 05/05/2023 MyChart Message Enc [facility] Medical [facility] Multispecialty [facility] - [address] [place], [place] [phone] Byron Barraza MD [address] [place] [address] [place], [place] [phone] Allergies Social History Tobacco Use Types Packs/Day Years Used Date Smoking Tobacco: Never Smokeless Tobacco: Never Comments:counseled by Dr Mihcelle house Alcohol Use Standard Drinks/Week Comments Not Currently 0 (1 standard drink = 0.6 oz pur e alcohol) PHQ-2 Answer Date Recorded Patient Health Questionnaire-2 Score 0 07/11/2022 Comments No Sex and Gender Information Value Date Recorded Sex Assigned at Female 05/10/2024 9:47 AM CDT Legal Sex Female 4:03 PM CDT Gender Identity Female 05/10/2024 9:47 AM CDT Sexual Orientation Straight 05/10/2024 9: 47 AM CDT documented as of this encounter Plan of Treatment Upcoming Encounters Date Type Department Care Team (Late Contact Info) Description 09/14/2024 10:20 AM CDT Laboratory Only [facility] Medical [facility] Multispecialty Care - [place] [address] [place] [address] [address] [place], [place] [address] Byron Barraza MD [address] [address] 11/14/2024 10:20 AM CDT Office Visit [facility] Medical Group Multispecialty Care - [place] [address] [address] [place] [address] Byron Barraza MD [address] [address] documented as of this encounter Visit Diagnoses Not on filedocumented in this encounter Additional Health Concerns Infection Onset Date Last Indicated Resolved Time COVID-19 Rule Out 12/28/2023 12/28/2023 12/28/2023 1:04 PM CDT Influenza - Seasonal 12/28/2023 12/28/2023 024 12:32 AM CORE PLACER Assessment Noted Time PHQ-9 Depression Total Score: 0 04/17/19 22 9:52 AM CORE PLACER documented as of this encounter Care Teams Linen Checker Relationship Specialty Start Date End Date Byron Barraza MD [address] [place] [address] PCP - General INTERNAL MEDICINE 06/25/20 documented as of this encounter
--- OUTSIDE RECORDS SUMMARY | 2024-09-08 14:46 | XMS_ITS | Encounter Summary ---
Author Organization [facility] Address [address] [place] [address] Care Team Providers Care Lining Stitcher Name Role Phone Byron Barraza MD Primary Care Provider [phone] Encounter Details Date Type Department Care Team (Latest Contact Info) Description 08/29/2020 MyChart Message Enc [place] [address] [address] [address] [place], [place] [phone] Byron Barraza MD [address] [place] [address] 157 [place], [place] [phone] phentermine refilled Social History Tobacco Use Types Packs/Day Years [...] Description 09/14/2024 10:20 AM CDT Laboratory Only [facility] - [address] [place] [address] Byron Barraza MD [address] [address] 11/14/2024 10:20 AM CDT Office Visit [facility] Medical Group Multispecialty Care - [place] [address] [address] [place] [address] Byron Barraza MD [facility] [address] [address] documented as of this encounter Visit Diagnoses Not on filedocumented in this encounter Additional Health Concerns Infection Onset Date Last Indicated Resolved Time COVID-19 Rule Out 12/28/2023 12/28/2023 12/28/2023 1:04 PM CDT Influenza - Seasonal 12/28/2023 12/28/2023 024 12:32 AM FISH HATCHERY MAN Assessment Noted Time PHQ-9 Depression Total Score: 17 021 10:42 AM CDT documented as of this encounter Care Teams Lining Stitcher Relationship Specialty Start Date End Date Byron Barraza MD [address] [place] [address] PCP - General INTERNAL MEDICINE 06/25/20 documented as of this encounter
--- OUTSIDE RECORDS SUMMARY | 2024-09-08 14:46 | XMS_ITS | Encounter Summary ---
Author Organization [facility] Address [address] [place] [address] Care Team Providers Care Manager Nuclear Name Role Phone Byron Barraza MD Primary Care Provider [phone] Encounter Details Date Type Department Care Team (Late Contact Info) Description 09/01/2024 Results Follow-Up [facility] Mammography [address] [place] [address] [place] [address] [place] [address] 157 [place] [address] MG DIAG W ANTON LT DIGI, US BREAST LT BIRAD LTD Social History Tobacco Use Types Packs/Day Years Used Date Smoking Tobacco: Never Smokeless Tobacco: Never Comments:counseled by Dr Michelle house Alcohol Use Standard Drinks/Week Comments Never 0 (1 standard drink = 0.6 oz pur e alcohol) PHQ-2 Answer Date Recorded Patient Health Questionnaire-2 Score 0 08/11/2024 Comments No Sex and Gender Information Value Date Recorded Sex Assigned at Female 05/10/2024 9:47 AM CDT Legal Sex Female 4:03 PM CDT Gender Identity Female 05/10/2024 9:47 AM CDT Sexual Orientation Straight 05/10/2024 9: 47 AM CDT documented as of this encounter Plan of Treatment Upcoming Encounters Date Type Department Care Team (Late Contact Info) Description 09/14/2024 10:20 AM CDT Laboratory Only [facility] Medical Group Multispecialty Care - [address] [place] [address] Byron Barraza MD [facility] [address] [address] 11/14/2024 10:20 AM CDT Office Visit [facility] Medical Group Multispecialty Care - [place] [address] [address] [place] [address] Byron Barraza MD [facility] [address] [address] documented as of this encounter Visit Diagnoses Not on filedocumented in this encounter Additional Health Concerns Assessment Noted Time PHQ-9 Depression Total Score: 0 08/12/19 25 4:35 PM CDT documented as of this encounter Care Teams Manager Nuclear Relationship Specialty Start Date End Date Byron Barraza MD [address] [place] [address] PCP - General INTERNAL MEDICINE 06/25/20 documented as of this encounter
--- OUTSIDE RECORDS SUMMARY | 2024-09-08 14:46 | XMS_ITS | Encounter Summary ---
Author Organization [facility] Address [address] [place] [address] Care Team Providers Care Gum Remover Name Role Phone Byron Barraza MD Primary Care Provider [phone] Encounter Details Date Type Department Care Team (Late st Contact Info) Description 10/23/2021 MyChart Message Enc [facility] Medical Group Multispecialty Care - [place] [address] [address] [place] [address] Byron Barraza MD [address] [place] [address] 157 [place], [place] [phone] phentermine Social History Tobacco Use Types Packs/Day Years Used Date Smoking Tobacco: Never Smokeless Tobacco: Never Comments:counseled by Dr Michelle house Alcohol Use Standard Drinks/Week Comments Not Currently 0 (1 standard drink = 0.6 oz pur e alcohol) PHQ-2 Answer Date Recorded PHQ-2 Score - If the patient scores above 3, please move on to questions 3-9 0 08/20/2021 Comments No Sex and Gender Information Value [...] suspected to have Coronavirus/COVID-19? No / Unsure 10/23/2021 9:30 AM CDT documented as of this encounter Plan of Treatment Upcoming Encounters Date Type Department Care Team (Late st Contact Info) Description 09/14/2024 10:20 AM CDT Laboratory Only [facility] Medical [facility] Multispecialty [facility] - [place] [address] [address] [place] [address] Byron Barraza MD [address] [address] 11/14/2024 10:20 AM CDT Office Visit [facility] Medical [facility] Multispecialty [facility] - [address] [place] [address] Byron Barraza MD [facility] [address] [address] documented as of this encounter Visit Diagnoses Not on filedocumented in this encounter Additional Health Concerns Infection Onset Date Last Indicated Resolved Time COVID-19 Rule Out 12/28/2023 12/28/2023 12/28/2023 1:04 PM CDT Influenza - Seasonal 12/28/2023 12/28/2023 024 12:32 AM ZOOGLER Assessment Noted Time PHQ-9 Depression Total Score: 0 04/17/19 22 9:52 AM ZOOGLER documented as of this encounter Care Teams Gum Remover Relationship Specialty [place] [address] [place] [address] PCP - General INTERNAL MEDICINE 06/25/20 documented as of this encounter
--- OUTSIDE RECORDS SUMMARY | 2024-09-08 14:46 | XMS_ITS | Encounter Summary ---
Author Organization [facility] Address [address] [place] [address] Care Team Providers Care Embedder Name Role Phone Byron Barraza MD Primary Care Provider [phone] Encounter Details Date Type Department Care Team (Late Contact Info) Description 09/25/2023 MyChart Message Enc [facility] - [place] [address] [address] [place], [place] [address] Byron Barraza MD [address] [place] [phone] Walking boot Social History Tobacco Use Types Packs/Day Years Used Date Smoking Tobacco: Never Smokeless Tobacco: Never Comments:counseled by Dr Michelle house Alcohol Use Standard Drinks/Week Comments Never 0 (1 standard drink = 0.6 oz pur e alcohol) PHQ-2 Answer Date Recorded Patient Health Questionnaire-2 Score 0 08/12/2023 Comments No Sex and Gender Information Value [...] Description 09/14/2024 10:20 AM CDT Laboratory Only [facility] Multispecialty [facility] - [address] [place], [place] [address] Byron Barraza MD [address] [address] 11/14/2024 10:20 AM CDT Office Visit [facility] Medical Group Multispecialty Care - [place] [address] [address] [place] [address] Byron Barraza MD [address] [address] documented as of this encounter Visit Diagnoses Not on filedocumented in this encounter Additional Health Concerns Infection Onset Date Last Indicated Resolved Time COVID-19 Rule Out 12/28/2023 12/28/2023 12/28/2023 1:04 PM CDT Influenza - Seasonal 12/28/2023 12/28/2023 024 12:32 AM DAIRY CHEMIST Assessment Noted Time PHQ-9 Depression Total Score: 0 04/17/19 22 9:52 AM DAIRY CHEMIST documented as of this encounter Care Teams Embedder Relationship Specialty Start Date End Date Byron Barraza MD [address] [place] [address] PCP - General INTERNAL MEDICINE 06/25/20 documented as of this encounter
--- OUTSIDE RECORDS SUMMARY | 2024-09-08 14:46 | XMS_ITS | Encounter Summary ---
Author Organization [facility] Address [address] [place] [address] Care Team Providers Care Fabric And Textile Factory Worker Name Role Phone Byron Barraza MD Primary Care Provider [phone] Encounter Details Date Type Department Care Team (Late Contact Info) Description 08/13/2022 MyChart Message [facility] Multispecialty Care - [place] [address] [place] [address] [address] [place], [place] [address] [place] [address] [place] [address] 157 [place] [address] Hemoglobin Social History Tobacco Use Types Packs/Day Years [...] suspected to have Coronavirus/COVID-19? No / Unsure 08/15/2022 11:00 AM CDT documented as of this encounter Plan of Treatment Upcoming Encounters Date Type Department Care Team (Late st Contact Info) Description 09/14/2024 10:20 AM CDT Laboratory Only [facility] Medical [facility] Multispecialty [place] [facility] - [place] [address] [address] [place] [address] Byron Barraza MD [facility] [address] 11/14/2024 10:20 AM CDT Office Visit [facility] Medical [facility] [place] [facility] - [place] [address] [address] [place] [address] Byron Barraza MD [address] [place] [address] documented as of this encounter Visit Diagnoses Not on filedocumented in this encounter Additional Health Concerns Infection Onset Date Last Indicated Resolved Time COVID-19 Rule Out 12/28/2023 12/28/2023 12/28/2023 1:04 PM CDT Influenza - Seasonal 12/28/2023 12/28/2023 024 12:32 AM ACCOUNT ADMINISTRATOR Assessment Noted Time PHQ-9 Depression Total Score: 0 04/17/19 22 9:52 AM ACCOUNT ADMINISTRATOR documented as of this encounter Care Teams Fabric And Textile Factory Worker Relationship Specialty Start Date End Date Byron Barraza MD [address] [place] [address] PCP - General INTERNAL MEDICINE 06/25/20 documented as of this encounter
--- OUTSIDE RECORDS SUMMARY | 2024-09-08 14:46 | XMS_ITS | Encounter Summary ---
Author Organization [facility] Address [address] [place] [address] Care Team Providers Care Machine Packer Name Role Phone Byron Barraza MD Primary Care Provider [phone] Encounter Details Date Type Department Care Team (Late Contact Info) Description 08/08/2022 MyChart Message [facility] Medical Group Multispecialty Care - [place] [address] [place] [address] [address] [place], [place] [address] [place] [address] [place] [address] 157 [place], [place] [id number] Neck pain Social History Tobacco Use Types Packs/Day Years [...] suspected to have Coronavirus/COVID-19? No / Unsure 08/11/2022 7:59 AM CDT documented as of this encounter Plan of Treatment Upcoming Encounters Date Type Department Care Team (Late st Contact Info) Description 09/14/2024 10:20 AM CDT Laboratory Only [facility] Medical [facility] Multispecialty Care - [place] [address] [place] [address] [address] [place] [address] Byron Barraza MD Pending [facility] to [facility] [address] [address] 11/14/2024 10:20 AM CDT Office Visit [facility] Medical [facility] Multispecialty [facility] - [place] [address] [address] [place] [address] Byron Barraza MD [address] [place] [address] documented as of this encounter Visit Diagnoses Not on filedocumented in this encounter Additional Health Concerns Infection Onset Date Last Indicated Resolved Time COVID-19 Rule Out 12/28/2023 12/28/2023 12/28/2023 1:04 PM CDT Influenza - Seasonal 12/28/2023 12/28/2023 024 12:32 AM TIRE FABRICATOR Assessment Noted Time PHQ-9 Depression Total Score: 0 04/17/19 22 9:52 AM TIRE FABRICATOR documented as of this encounter Care Teams Machine Packer Relationship Specialty Start Date End Date Byron Barraza MD [address] [place] [address] PCP - General INTERNAL MEDICINE 06/25/20 documented as of this encounter
--- OUTSIDE RECORDS SUMMARY | 2024-09-08 14:46 | XMS_ITS | Encounter Summary ---
Author Organization [facility] Address [address] [place] [address] Care Team Providers Care Traffic Signal Mechanic Name Role Phone Byron Barraza MD Primary Care Provider [phone] Encounter Details Date Type Department Care Team (Late st Contact Info) Description 01/01/2022 MyChart Message Enc [place] [address] [address] [place] [address] Byron Barraza MD [address] [place] [id number] Influenza Social History Tobacco Use Types Packs/Day Years [...] Description 09/14/2024 10:20 AM CDT Laboratory Only [address] [place] [address] Byron Barraza MD [address] [address] 11/14/2024 10:20 AM CDT Office Visit [facility] Medical Group Multispecialty Care - [place] [address] [address] [place] [address] Byron Barraza MD [address] [address] documented as of this encounter Visit Diagnoses Not on filedocumented in this encounter Additional Health Concerns Infection Onset Date Last Indicated Resolved Time COVID-19 Rule Out 12/28/2023 12/28/2023 12/28/2023 1:04 PM CDT Influenza - Seasonal 12/28/2023 12/28/2023 024 12:32 AM HYDRATE THICKENER OPERATOR Assessment Noted Time PHQ-9 Depression Total Score: 0 04/17/19 22 9:52 AM HYDRATE THICKENER OPERATOR documented as of this encounter Care Teams Traffic Signal Mechanic Relationship Specialty Start Date End Date Byron Barraza MD [address] [place] [address] PCP - General INTERNAL MEDICINE 06/25/20 documented as of this encounter
--- OUTSIDE RECORDS SUMMARY | 2024-09-08 14:46 | XMS_ITS | Encounter Summary ---
Author Organization [facility] Address [address] [place] [address] Care Team Providers Care Cash Checker Name Role Phone Byron Barraza MD Primary Care Provider [phone] Encounter Details Date Type Department Care Team (Latest Contact Info) Description 06/07/2021 MyChart Message Enc [facility] Medical Group Multispecialty Care - [place] [address] [place] [address] [address] [place], [place] [address] [place] [address] [place] [address] 157 [place], [place] [phone] Xray foot results Social History Tobacco Use Types Packs/Day Years [...] Description 09/14/2024 10:20 AM CDT Laboratory Only [facility] Medical [facility] Multispecialty [facility] - [place] [address] [address] [place] [address] Byron Barraza MD [address] [address] 11/14/2024 10:20 AM CDT Office Visit [facility] Medical [facility] Multispecialty [facility] - [address] [place] [address] Byron Bararza MD [facility] [address] [address] documented as of this encounter Visit Diagnoses Not on filedocumented in this encounter Additional Health Concerns Infection Onset Date Last Indicated Resolved Time COVID-19 Rule Out 12/28/2023 12/28/2023 12/28/2023 1:04 PM CDT Influenza - Seasonal 12/28/2023 12/28/2023 024 12:32 AM LEAD RELAY TESTER Assessment Noted Time PHQ-9 Depression Total Score: 0 04/17/19 22 9:52 AM LEAD RELAY TESTER documented as of this encounter Care Teams Cash Checker Relationship Specialty Start Date End Date Byron Barraza MD [address] [place] [address] PCP - General INTERNAL MEDICINE 06/25/20 documented as of this encounter
--- OUTSIDE RECORDS SUMMARY | 2024-09-08 14:46 | XMS_ITS | Encounter Summary ---
Author Organization [facility] Address [address] [place] [address] Care Team Providers Care Airport Operations Specialist Name Role Phone Byron Barraza MD Primary Care Provider [phone] Encounter Details Date Type Department Care Team (Late Contact Info) Description 01/08/2023 MyChart Message Enc [facility] - [place] [address] [address] [place], [place] [address] Byron Barraza MD [address] [place] [phone] Covid Social History Tobacco Use Types Packs/Day Years Used Date Smoking Tobacco: Never Smokeless Tobacco: Never Comments:counseled by Dr [facility] Alcohol Use Standard Drinks/Week Comments Not [...] Description 09/14/2024 10:20 AM CDT Laboratory Only [facility] Multispecialty [facility] Emergency Department - [address] [place], [place] [address] Byron Barraza MD [address] [address] 11/14/2024 10:20 AM CDT Office Visit [facility] Medical Group Multispecialty Care - [place] [address] [address] [place] [address] Byron Barraza MD [address] [address] documented as of this encounter Visit Diagnoses Not on filedocumented in this encounter Additional Health Concerns Infection Onset Date Last Indicated Resolved Time COVID-19 Rule Out 12/28/2023 12/28/2023 12/28/2023 1:04 PM CDT Influenza - Seasonal 12/28/2023 12/28/2023 024 12:32 AM DREDGE MASTER Assessment Noted Time PHQ-9 Depression Total Score: 0 04/17/19 22 9:52 AM DREDGE MASTER documented as of this encounter Care Teams Airport Operations Specialist Relationship Specialty Start Date End Date Byron Barraza MD [address] [place] [address] PCP - General INTERNAL MEDICINE 06/25/20 documented as of this encounter
--- OUTSIDE RECORDS SUMMARY | 2024-09-08 14:46 | XMS_ITS | Encounter Summary ---
Author Organization [facility] Address [address] [place] [address] Care Team Providers Care Retail Field Representative Name Role Phone Byron Barraza MD Primary Care Provider [phone] Encounter Details Date Type Department Care Team (Late Contact Info) Description 08/21/2021 Backyard Brainst Message Enc [address] [place] [address] Mychart, [facility] Provider test results Social History Tobacco Use Types Packs/Day [...] suspected to have Coronavirus/COVID-19? No / Unsure 08/20/2021 10:15 AM CDT documented as of this encounter Plan of Treatment Upcoming Encounters Date Type Department Care Team (Late Contact Info) Description 09/14/2024 10:20 AM CDT Laboratory Only [facility] Multispecialty Care - [address] [place] [address] Byron Barraza MD [facility] [address] 11/14/2024 10:20 AM CDT Office Visit [facility] Medical Group Multispecialty Care - [place] [address] [address] [place] [address] Byron Barraza MD [address] [place] [address] documented as of this encounter Visit Diagnoses Not on filedocumented in this encounter Additional Health Concerns Infection Onset Date Last Indicated Resolved Time COVID-19 Rule Out 12/28/2023 12/28/2023 12/28/2023 1:04 PM CDT Influenza - Seasonal 12/28/2023 12/28/2023 024 12:32 AM APPLIQUE SEWER Assessment Noted Time PHQ-9 Depression Total Score: 0 04/17/19 22 9:52 AM APPLIQUE SEWER documented as of this encounter Care Teams Retail Field Representative Relationship Specialty Start Date End Date Byron Barraza MD [address] [place] [address] PCP - General INTERNAL MEDICINE 06/25/20 documented as of this encounter
--- OUTSIDE RECORDS SUMMARY | 2024-09-08 14:46 | XMS_ITS | Encounter Summary ---
Author Organization [facility] Address [address] [place] [address] Care Team Providers Care Manager Nuclear Name Role Phone Byron Barraza MD Primary Care Provider [phone] Encounter Details Date Type Department Care Team (Latest Contact Info) Description 08/12/2024 Results Follow-Up [place] [address] [place] [address] Byron Barraza MD [address] [place] [address] URINALYSIS AUTO DIP, CBC W/DIFF AUTOMATED, COMPREHENSIVE METABOLIC PANEL, Additional followed-up results: 4 Social History Tobacco Use Types Packs/Day Years [...] Description 09/14/2024 10:20 AM CDT Laboratory Only [address] [place] [address] Byron Barraza MD [facility] [address] [address] 11/14/2024 10:20 AM CDT Office Visit [facility] Medical Group Multispecialty Care - [place] [address] [place] [address] Byron Barraza MD [facility] [address] [address] Scheduled Orders Name Type Priority Associated Diagnoses Orde r Schedule TSH W/REFLEX Lab Routine Acquired hypothyroidism Expected: 08/12/2024, Expires: 08/12/2025 CBC W/DIFF AUTOMATED Lab Routine Primary hypertension Expected: 08/12/2024, Expires: 08/12/2025 documented as of this encounter Visit Diagnoses Diagnosis Acquired hypothyroidism- Primary Unspecified hypothyroidism Primary hypertension Unspecified essential hypertension documented in this encounter Additional Health Concerns Assessment Noted Time PHQ-9 Depression Total Score: 0 08/12/19 25 4:35 PM CDT documented as of this encounter Care Teams Manager Nuclear Relationship Specialty Start Date End Date Byron Barraza MD [address] [place] [address] PCP - General INTERNAL MEDICINE 06/25/20 documented as of this encounter
--- OUTSIDE RECORDS SUMMARY | 2024-09-08 14:46 | XMS_ITS | Encounter Summary ---
Author Organization [facility] Address [address] [place] [address] Care Team Providers Care District Extension Service Agent Name Role Phone Byron Barraza MD Primary Care Provider [phone] Reason for Visit * Reason Onset Date Comments Information 09/08/2024 Encounter Details Date Type Department Care Team (Late st Contact Info) Description 09/08/2024 Telephone [facility] Medical Group Multispecialty Care - [place] [address] [address] [place] [address] Byron Barraza MD [address] [place] [address] 157 [place], [place] [phone] Information Social History Tobacco Use Types Packs/Day Years [...] AM CDT documented as of this encounter Progress Notes * Alba Goncalves - 09/08/2024 1:46 PM CDT Patient was wanting us to fax over her previous lab work to [facility]. I advised her that they can request a release from us so that we can send that or she can fillout a release of records with us. Whatever is easier. documented in this encounter Plan of Treatment Upcoming Encounters Date Type Department Care Team (Late st Contact Info) Description 09/14/2024 10:20 AM CDT Laboratory Only [facility] Medical [facility] Multispecialty [facility] - [place] [address] [address] [place] [address] Byron Barraza MD [address] [place] [address] 11/14/2024 10:20 AM CDT [facility] - [address] [address] Byron Barraza MD [address] [place] [address] documented as of this encounter Visit Diagnoses Not on filedocumented in this encounter Additional Health Concerns Assessment Noted Time PHQ-9 Depression Total Score: 0 08/12/19 25 4:35 PM CDT documented as of this encounter Care Teams District Extension Service Agent Relationship Specialty Start Date End Date Byron Barraza MD [address] [place] [address] PCP - General INTERNAL MEDICINE 06/25/20 documented as of this encounter
--- OUTSIDE RECORDS SUMMARY | 2024-09-08 14:46 | XMS_ITS | Encounter Summary ---
Author Organization [facility] Address [address] [place] [address] Care Team Providers Care Ortho/Prosthetic Aide Name Role Phone Byron Barraza MD Primary Care Provider [phone] Encounter Details Date Type Department Care Team (Late Contact Info) Description 08/12/2022 Transonic Combustionhart Message Enc [place] [address] [facility] [address] [place], [place] [address] Mychart, [facility] Provider Lab results Social History Tobacco Use Types Packs/Day [...] Description 09/14/2024 10:20 AM CDT Laboratory Only [place] [address] [address] [place] [address] Byron Barraza MD [address] [address] 11/14/2024 10:20 AM CDT Office Visit [facility] Medical Group Multispecialty Care - [place] [address] [address] [place] [address] [facility] [address] documented as of this encounter Visit Diagnoses Not on filedocumented in this encounter Additional Health Concerns Infection Onset Date Last Indicated Resolved Time COVID-19 Rule Out 12/28/2023 12/28/2023 12/28/2023 1:04 PM CDT Influenza - Seasonal 12/28/2023 12/28/2023 024 12:32 AM INSTRUCTOR SUBSTITUTE COSMETOLOGY Assessment Noted Time PHQ-9 Depression Total Score: 0 04/17/19 22 9:52 AM INSTRUCTOR SUBSTITUTE COSMETOLOGY documented as of this encounter Care Teams Ortho/Prosthetic Aide Relationship Specialty Start Date End Date Byron Barraza MD [address] [place] [address] PCP - General INTERNAL MEDICINE 06/25/20 documented as of this encounter
--- OUTSIDE RECORDS SUMMARY | 2024-09-08 14:46 | XMS_ITS | Encounter Summary ---
Author Organization [facility] Address [address] [place] [address] Care Team Providers Care Butadiene Converter Utility Operator Name Role Phone Byron Barraza MD Primary Care Provider [phone] Encounter Details Date Type Department Care Team (Latest Contact Info) Description 07/20/2024 MyChart Message Enc [address] [address] Byron Barraza MD [address] [place] [address] Medication zepbound Social History Tobacco Use Types Packs/Day Years Used Date Smoking Tobacco: Never Smokeless Tobacco: Never Comments:counseled by Dr [facility] Alcohol Use Standard Drinks/Week Comments Never 0 (1 standard drink = 0.6 oz pur e alcohol) PHQ-2 Answer Date Recorded Patient Health Questionnaire-2 Score 0 06/10/2024 Comments No Sex and Gender Information Value [...] Description 09/14/2024 10:20 AM CDT [facility] [address] [address] [place], [place] [address] [place] [address] [place] [address] 11/14/2024 10:20 AM CDT Office Visit [facility] Medical Group Multispecialty Care - [place] [address] [address] [place] [address] Byron Barraza MD [facility] [address] [address] documented as of this encounter Visit Diagnoses Not on filedocumented in this encounter Additional Health Concerns Assessment Noted Time PHQ-9 Depression Total Score: 0 04/17/19 22 9:52 AM SUPERVISOR HEADING documented as of this encounter Care Teams Butadiene Converter Utility Operator Relationship Specialty Start Date End Date Byron Barraza MD [address] [place] [address] PCP - General INTERNAL MEDICINE 06/25/20 documented as of this encounter
--- OUTSIDE RECORDS SUMMARY | 2024-09-08 14:46 | XMS_ITS | Encounter Summary ---
Author Organization [facility] Address [address] [place] [address] Care Team Providers Care Foreclosure Home Inspector Name Role Phone Byron Barraza MD Primary Care Provider [phone] Encounter Details Date Type Department Care Team (Latest Contact Info) Description 07/18/2024 MyChart Message Enc [address] [address] Byron Barraza MD [address] [place] [address] Zepbound preauthorization Social History Tobacco Use Types Packs/Day Years [...] Description 09/14/2024 10:20 AM CDT Laboratory Only [place] [address] [address] [place], [place] [address] Byron Barraza MD [facility] [address] [address] 11/14/2024 10:20 AM CDT Office Visit [facility] Medical Group Multispecialty Care - [place] [address] [address] [place] [address] Byron Barraza MD [facility] [address] [address] documented as of this encounter Visit Diagnoses Not on filedocumented in this encounter Additional Health Concerns Assessment Noted Time PHQ-9 Depression Total Score: 0 04/17/19 22 9:52 AM BEAUTY DIRECTOR documented as of this encounter Care Teams Foreclosure Home Inspector Relationship Specialty Start Date End Date Byron Barraza MD [address] [place] [address] PCP - General INTERNAL MEDICINE 06/25/20 documented as of this encounter
--- OUTSIDE RECORDS SUMMARY | 2024-09-08 14:46 | XMS_ITS | Encounter Summary ---
Author Organization [facility] Address [address] [place] [address] Care Team Providers Care Stockroom Clerk Name Role Phone Byron Barraza MD Primary Care Provider [phone] Encounter Details Date Type Department Care Team (Latest Contact Info) Description 08/18/2022 MyChart Message [facility] Medical Group Multispecialty Care - [place] [address] [place] [address] [address] [place], [place] [address] [place] [address] [place] [address] [place], [place] [address] Vascular surgeon Social History Tobacco Use Types Packs/Day Years [...] Description 09/14/2024 10:20 AM CDT Laboratory Only [facility] Medical [facility] Multispecialty [facility] - [place] [address] [address] [place] [address] Byron Barraza MD [facility] [address] [address] 11/14/2024 10:20 AM CDT Office Visit [facility] - [place] [address] [address] [place] [address] Byron Barraza MD [address] [place] [address] documented as of this encounter Visit Diagnoses Not on filedocumented in this encounter Additional Health Concerns Infection Onset Date Last Indicated Resolved Time COVID-19 Rule Out 12/28/2023 12/28/2023 12/28/2023 1:04 PM CDT Influenza - Seasonal 12/28/2023 12/28/2023 024 12:32 AM SELF CONTAINED BEHAVIOR UNIT TEACHER Assessment Noted Time PHQ-9 Depression Total Score: 0 04/17/19 22 9:52 AM SELF CONTAINED BEHAVIOR UNIT TEACHER documented as of this encounter Care Teams Stockroom Clerk Relationship Specialty Start Date End Date Byron Barraza MD [address] [place] [address] PCP - General INTERNAL MEDICINE 06/25/20 documented as of this encounter
--- OUTSIDE RECORDS SUMMARY | 2024-09-08 14:46 | XMS_ITS | Encounter Summary ---
Author Organization [facility] Address [address] [place] [address] Care Team Providers Care Leather Grainer Name Role Phone Byron Barraza MD Primary Care Provider [phone] Encounter Details Date Type Department Care Team (Late Contact Info) Description 09/21/2023 MyChart Message [facility] [address] [facility] [address] [place] [address] Thelma Armstrong, GLASSIE [address] [place] [address] Ankle Social History Tobacco Use Types Packs/Day Years [...] Description 09/14/2024 10:20 AM CDT [facility] [address] [place], [place] [address] Byron Barraza MD [address] [address] 11/14/2024 10:20 AM CDT Office Visit [facility] Medical Group Multispecialty Care - [place] [address] [address] [place] [address] Byron Barraza MD [facility] [address] [address] documented as of this encounter Visit Diagnoses Not on filedocumented in this encounter Additional Health Concerns Infection Onset Date Last Indicated Resolved Time COVID-19 Rule Out 12/28/2023 12/28/2023 12/28/2023 1:04 PM CDT Influenza - Seasonal 12/28/2023 12/28/2023 024 12:32 AM VETERINARY PRACTICE MANAGER Assessment Noted Time PHQ-9 Depression Total Score: 0 04/17/19 22 9:52 AM VETERINARY PRACTICE MANAGER documented as of this encounter Care Teams Leather Grainer Relationship Specialty Start Date End Date Byron Barraza MD [address] [place] [address] PCP - General INTERNAL MEDICINE 06/25/20 documented as of this encounter
--- OUTSIDE RECORDS SUMMARY | 2024-09-08 14:46 | XMS_ITS | Encounter Summary ---
Author Organization [facility] Address [address] [place] [address] Care Team Providers Care Necktie Maker Name Role Phone Byron Barraza MD Primary Care Provider [phone] Encounter Details Date Type Department Care Team (Late Contact Info) Description 08/15/2022 MyChart Message [facility] Mult[facility] [place] [address] [place] [address] [address] [place], [place] [id number] [place] [address] [place] [address] [address] [place] [address] doppler results Social History Tobacco Use Types Packs/Day [...] Description 09/14/2024 10:20 AM CDT Laboratory Only [facility] Medical [facility] Multispecialty Care [place] [address] [address] [address] [address] [place] [address] Byron Barraza MD [facility] [address] [address] 11/14/2024 10:20 AM CDT Office Visit [facility] Medical [facility] Multispecialty [facility] [place] [address] [address] [place] [address] Byron Barraza MD [address] [place] [address] documented as of this encounter Visit Diagnoses Not on filedocumented in this encounter Additional Health Concerns Infection Onset Date Last Indicated Resolved Time COVID-19 Rule Out 12/28/2023 12/28/2023 12/28/2023 1:04 PM CDT Influenza - Seasonal 12/28/2023 12/28/2023 024 12:32 AM COORDINATOR HOTELS Assessment Noted Time PHQ-9 Depression Total Score: 0 04/17/19 22 9:52 AM COORDINATOR HOTELS documented as of this encounter Care Teams Necktie Maker Relationship Specialty Start Date End Date Byron Barraza MD [address] [place] [id number] PCP - General INTERNAL MEDICINE 06/25/20 documented as of this encounter
--- OUTSIDE RECORDS SUMMARY | 2024-09-08 14:46 | XMS_ITS | Encounter Summary ---
Author Organization [facility] Address [address] [place] [address] Care Team Providers Care Cover Mat Machine Operator Name Role Phone Byron Barraza MD Primary Care Provider [phone] Encounter Details Date Type Department Care Team (Late st Contact Info) Description 09/10/2020 MyChart Message Enc [place] [address] [address] [place] [address] Byron Barraza MD [address] [place] [address] follow up visit Social History Tobacco Use Types Packs/Day Years [...] Description 09/14/2024 10:20 AM CDT Laboratory Only [address] [place] [address] Byron Barraza MD [address] [address] 11/14/2024 10:20 AM CDT Office Visit [facility] Medical Group Multispecialty Care [place] [address] [address] [place] [address] Byron Barraza MD [facility] [address] [address] documented as of this encounter Visit Diagnoses Not on filedocumented in this encounter Additional Health Concerns Infection Onset Date Last Indicated Resolved Time COVID-19 Rule Out 12/28/2023 12/28/2023 12/28/2023 1:04 PM CDT Influenza - Seasonal 12/28/2023 12/28/2023 024 12:32 AM TRACTION POWER ENGINEER Assessment Noted Time PHQ-9 Depression Total Score: 17 021 10:42 AM CDT documented as of this encounter Care Teams Cover Mat Machine Operator Relationship Specialty Start Date End Date Byron Barraza MD [address] [place] [id number] PCP - General INTERNAL MEDICINE 06/25/20 documented as of this encounter
--- OUTSIDE RECORDS SUMMARY | 2024-09-08 14:46 | XMS_ITS | Encounter Summary ---
Author Organization [facility] Address [address] [place] [address] Care Team Providers Care Pattern Marking Supervisor Name Role Phone Byron Barraza MD Primary Care Provider [phone] Encounter Details Date Type Department Care Team (Late st Contact Info) Description 06/06/2021 MyChart Message Enc [facility] Medical [facility] Multispecialty Care - [place] [address] [place] [address] [address] [place] [address] [place] [address] [place] [address] [place], [place] [id number] X-ray Social History Tobacco Use Types Packs/Day Years [...] Description 09/14/2024 10:20 AM CDT Laboratory Only [facility] Medical [facility] Multispecialty [facility] - [place] [address] [address] [place] [address] Byron Barraza MD [address] [address] 11/14/2024 10:20 AM CDT Office Visit [facility] Medical [facility] Multispecialty [facility] - [address] [place] [address] Byron Barraza MD [facility] [address] [address] documented as of this encounter Visit Diagnoses Not on filedocumented in this encounter Additional Health Concerns Infection Onset Date Last Indicated Resolved Time COVID-19 Rule Out 12/28/2023 12/28/2023 12/28/2023 1:04 PM CDT Influenza - Seasonal 12/28/2023 12/28/2023 024 12:32 AM TOOL POLISHING MACHINE OPERATOR Assessment Noted Time PHQ-9 Depression Total Score: 0 04/17/19 22 9:52 AM TOOL POLISHING MACHINE OPERATOR documented as of this encounter Care Teams Pattern Marking Supervisor Relationship Specialty Start Date End Date Byron Barraza MD [address] [place] [id number] PCP - General INTERNAL MEDICINE 06/25/20 documented as of this encounter
--- OUTSIDE RECORDS SUMMARY | 2024-09-08 14:46 | XMS_ITS | Clinical Summary ---
Author Organization [facility] Address [address] [place] [address] Care Team Providers Care Nutrition Tech Name Role Phone Byron Barraza MD Primary Care Provider Allergies Active Allergy Reactions Criticality Noted Date Comments Azithromycin Other (see comment) 06/27/2020 Cefuroxime Other (see comment) 06/27/2020 Cephalosporins Rash Low 06/27/2020 Penicillins Rash Low 06/27/2020 Iron Sucrose Hives 08/15/2022 Medications Docusate Sodium (COLACE OR) Take by mouth daily. Active gabapentin (NEURONTIN) 100 MG capsule Take 1 capsule (100 mg total) by mouth 3 (three) times daily. 07/31/19 24 Active mexiletine (MEXITIL) 150 MG Cap Take 1 capsule (150 mg total) by mouth 2 (two) times daily. Active ondansetron (ZOFRAN-ODT) 4 MG disintegrating tabletIndications :Nausea,Diarrhea, unspecified type Take 1 tablet (4 mg total) by mouth every 6 (six) hours as needed for Nausea. 30 tablet 2 05/24/19 25 Active tirzepatide (ZEPBOUND) 7.5 MG/0.5ML injectionIndicati ons:Weight Loss Inject 7.5 mg into the skin once a week. Indication s: Weight Loss 2 mL 2 08/12/19 25 Active atorvastatin (LIPITOR) 20 MG tabletIndications :Mixed hyperlipidemia Take 1 tablet (20 mg total) by mouth nightly at bedtime. 90 tablet 3 08/12/19 25 Active carvedilol (COREG) 25 MG tabletIndications :Chronic systolic heart failure (CMS/HCC HHS/HCC) Take 1 tablet (25 mg total) by mouth 2 (two) times daily. 180 tablet 1 08/12/19 25 Active levothyroxine (SYNTHROID) 25 MCG tabletIndications :Acquired hypothyroidism Take 1 tablet (25 mcg total) by mouth every morning. FOR 14 DAYS 90 tablet 1 08/12/19 25 Active losartan (COZAAR) 25 MG tabletIndications :Chronic systolic heart failure (CMS/HCC HHS/HCC),Primary hypertension Take 1 tablet (25 mg total) by mouth daily. 90 tablet 1 08/12/19 25 Active busPIRone (BUSPAR) 15 MG tabletIndications :Anxiety Take 1 tablet (15 mg total) by mouth 2 (two) times daily as needed. 180 tablet 2 08/12/19 25 Active atorvastatin (LIPITOR) 20 MG tabletIndications :Mixed hyperlipidemia Take 1 tablet (20 mg total) by mouth nightly at bedtime. 90 tablet 3 08/12/19 24 025 Discontinued(Re order) busPIRone (BUSPAR) 15 MG tabletIndications :Anxiety Take 1 tablet (15 mg total) by mouth 2 (two) times daily as needed. 180 tablet 2 08/12/19 24 025 Discontinued(Re order) albuterol sulfate HFA 108 (90 Base) MCG/ACT inhalerIndication s:Influenza B Inhale 2 puffs into the lungs every 6 (six) hours as needed. 18 g 12/28/19 24 025 Discontinued(Th erapy completed) Ferrous Sulfate (IRON) 325 (65 Fe) MG tabletIndications :Anemia, blood loss TAKE 1 TABLET BY MOUTH TWICE DAILY WITH MEALS. TAKE WITH ORANGE JUICE. 180 tablet 02/03/20 24 025 Discontinued levothyroxine (SYNTHROID) 25 MCG tabletIndications :Acquired hypothyroidism TAKE 1 TABLET BY MOUTH ONCE DAILY IN THE MORNING 90 tablet 06/07/19 25 025 Discontinued(Re order) carvedilol (COREG) 25 MG tabletIndications :Chronic systolic heart failure (CMS/HCC HHS/HCC) Take 1 tablet by mouth twice daily 60 tablet 06/20/19 25 025 Discontinued(Re order) tirzepatide (ZEPBOUND) 7.5 MG/0.5ML injectionIndicati ons:Weight Loss Inject 7.5 mg into the skin once a week. Indication s: Weight Loss 2 mL 1 06/22/19 25 025 Discontinued(Re order) losartan (COZAAR) 25 MG tabletIndications :Primary hypertension,Glaze Maker guanaco systolic heart failure ([facility]) Take 1 tablet (25 mg total) by mouth daily. 90 tablet 1 06/22/19 25 025 Discontinued(Re order) Active Problems Problem Noted Date Diagnosed Date Chronic bilateral low back pain with bilateral s ciatica 09/17/2023 Thrombosis of right internal jugular vein ([facility]/H [facility]) 08/11/2022 Cardiac arrest with ventricu lar fibrillation ([facility]) 07/11/2022 Heart failure ([facility]) 07/11/2022 Acute kidney injury 07/11/2022 Acute lower limb ischemia 07/11/2022 Cardiogenic shock ([facility]) 07/11/2022 Mixed hyperlipidemia 12/29/2021 Primary hypertension 04/17/2021 Supraventricular tachycardia ([facility]) Overview (07/27/2020): Will continue to follow. No acute concerns at this time. Will plan to let patient see cardiology to discuss treatment options. Plans to get an EKG when patient agreeable Prediabetes 06/28/2020 Class 2 obesity due to exces s calories without serious comorbidity in adult 06/27/2020 Anxiety 06/27/2020 Allergic rhinitis 06/27/2020 History of DVT (deep vein thrombosis) 12/08/2017 Overview (06/27/2020): No acute concerns. Patient unaware of this diagnosis in the past and tells me she was never treated with blood thinners. Doing well now and will continue to monitor. Gestational diabetes mellitus ([facility]) 11/06/19 18 Resolved Problems Problem Noted Date Diagnosed Date Resolved Date Dizziness 12/08/2017 06/27/2020 Palpitations 12/08/2017 06/27/2020 Screening for other and unsp ecified cardiovascular conditions 11/11/2017 06/27/2020 Dyspnea on exertion 11/05/2017 06/28/19 21 Wheezing 11/05/2017 06/27/2020 Encounters Date Type Department Care Team Description 09/08/2024 Telephone [facility] [place] [address] [place] [address] Byron Barraza MD Information 09/01/2024 10:25 AM CDT - 09/01/2024 11:59 PM CDT Hospital Encounter [facility] [place] [address] Thelma Armstrong, [employer] ASSEMBLER Discharge Disposition: Home or Self Care (Routine Discharge) 09/01/2024 Results Follow-Up [facility] [place] [address] Byron Barraza MD MG DIAG W ANTON LT DIGI, BREAST LT BIRAD LTD 09/01/2024 Travel 08/19/2024 Results Follow-Up [facility] - [address] [address] Thelma Armstrong, [employer]ER ASSEMBLER MG SCREENING W ANTON TONY DIGI 08/18/2024 Scan MG HEALTH INFO SRVCS Scanned, [facility] Mammogram (SCAN) 08/15/2024 4:48 PM CDT - 08/15/2024 11:59 PM CDT Hospital Encounter [facility]ography [address] [place] [address] Byron Barraza MD Discharge Disposition: Home or Self Care (Routine Discharge) 08/15/2024 Travel 08/12/2024 Results Follow-Up [facility] [place] [address] [place] [address] Byron Barraza MD URINALYSIS AUTO DIP, CBC W/DIFF AUTOMATED, COMPREHENSIVE METABOLIC PANEL, Additional followed-up results: 4 08/11/2024 4:00 PM CDT Office Visit [facility] [address] [facility] [address] [place] [address] Byron Barraza MD Follow Up; Weight Problem (States it is just a weight appointment ); Hypertension; Hyperlipidemia; Prediabetes; Anxiety; Physical 08/11/2024 Travel 07/20/2024 MyChart Message Enc [place] [address] [facility] [address] [place] [address] Byron Barraza MD Medication zepbound 07/18/2024 MyChart Message [facility] [place] [address] [address] [place] [address] Byron Barraza MD Zepbound preauthorization 07/18/[address] [place] [address] Byron Barraza MD Prior Authorization 07/12/2024 Telephone [place] [address] [facility] [address] [place] [address] Byron Barraza MD Appointment Request 06/21/2024 12:40 PM CDT Office Visit [address] [place] [address] Byron Barraza MD Follow Up; Weight Problem; Rash; Hypertension 06/21/2024 Travel 06/10/2024 2:40 PM CDT Office Visit [facility] General Surgery [address], [address] [place] [address] Krishna Gross MD Umbilical Hernia (Paraumbilical hernia consult- been there about 2 months) 06/10/2024 Travel from Last 3 Months Immunizations Immunization Administration Dates Next Due Fluzone (IIV3, Trivalent, 0.5 ML Prefilled Syrin ge) 01/12/2024 Fluzone 6 Months+ Quad (0.5 mL Prefilled Syringe ) 03/20/2021 MMR 04/11/2018 MMR (MMRII) 04/11/2018 Pneumococcal (Prevnar 20) 01/08/2024 Tdap (Generic) 01/28/2019 Family History Medical History Relation Comments Diabetes Brother Heart Disease Brother CHF Father Breast Cancer Maternal Grandmother age of onse t unknown Cancer Mother lung Relation Status Comments Brother Father Maternal Grandfather Maternal Grandmother Mother Paternal Grandfather Paternal Grandmother Social History Tobacco Use Types Packs/Day Years Used Date Smoking Tobacco: Never Smokeless Tobacco: Never Tobacco Cessation:Counseling Given: Yes Comments:counseled by Dr Barraza Alcohol Use Standard Drinks/Week Comments Never 0 [...] Orientation Straight 05/10/2024 9: 47 AM CDT Last Filed Vital Signs Vital Sign Reading Time Taken Comments Blood Pressure 102/66 08/11/2024 4:33 PM CDT Pulse 118 08/11/2024 3:59 PM CDT Temperature 36.3 C (97.3 F) 08/11/2024 3:59 PM CDT Respiratory Rate 16 08/11/2024 3:59 PM CDT Oxygen Saturation 97% 08/11/2024 3:59 PM CDT Inhaled Oxygen Concentration - - Weight 88.6 kg (195 lb 6.4 oz) 08/11/2024 3:59 P M CDT Height 167.6 cm (5' 6) 08/11/2024 3:59 PM CDT Body Mass Index 31.54 08/11/2024 3:59 PM CDT Plan of Treatment Upcoming Encounters Date Type Department Care Team (Late st Contact Info) Description 09/14/2024 10:20 AM CDT Laboratory Only [facility] [place] [address] [address] [place] [address] Byron Barraza MD [address] [place] [address] [address] [place] [address] 11/14/2024 10:20 AM CDT Office Visit [facility] - [place] [id number] [facility] [address] [place] [address] Byron Barraza MD [address] [facility] [address] [place] [address] Health Maintenance Due Date Last Done Comments Hepatitis B Vaccines (1 of 3 - 19+ 3-dose series) 1999 Cervical Cancer Screening Pap with HPV Testing (Age 30 to 64) Every 5 Years 2010 COVID-19 Vaccine ( season) 2023 Cervical Cancer Screening Pap Smear (Age 30 to 64) Every 3 Years 08/13/2024 08/13/2021, 09/10/2018 Cervical Cancer Screening with HPV 08/13/2024 Annual Physical 08/11/2025 08/11/2024, 07/31, 08/20/2021, Additional history exists Mammogram Screening 09/01/2026 09/01/2024, 08/18/2024, 08/15/2024, Additional history exists DTaP, Tdap and Td Vaccines (2 - Td or Tdap) 01/28/2029 01/28/2019 Hepatitis C Completed 07/01/2022, 04/2022, 07/01/2022, Additional history exists Pneumococcal Vaccine: Pediatrics (0 to 5 Years) and At-Risk Patients (6 to 49 Years) Completed 01/08/2024 PHQ-2 (Physician [place]) Completed 08/11/2024 HPV Vaccines Aged Out No longer eligi ble based on patient's age to complete this topic Meningococcal B Vaccine Aged Out No l onger eligible based on patient's age to complete this topic Meningococcal Vaccine Aged Out No mendoza mónica eligible based on patient's age to complete this topic RSV Immunizations Under 20 Months Aged Out No longer eligible based on patient's age to complete this topic Medical Devices Implanted Type Area Log Cut Off Sawyer Device Identifier Shelf Expiration Date Model / Serial / Lot Icd-07/07/2022 Implanted:Qty: 1 on 07/07/2022 by Barb Carrasco MD ICD Chest [employer]HY[employer]M [employer] HEART FAILURE - DIV M [id number] / [id number] / Description:MRI Conditional under following conditions: Static magnetic field of 1.5 T or 3 T, Max spatial gradient field of 2000 Gauss/cm or less, Max gradient slew rate of 200 T/m/s, 1.5 T max whole body RODERICK of 2 W/kg or less in Normal operating mode , Head RODERICK 3.2 W/kg or less; 3T B1+KARINA must be 2.8 mT or less when isocenter is inferior to C7, No B1+KARINA restriction at 3T when isocenter is at or superior to C7, Supine or Prone only Ra Lead-07/07/2022 Implanted:Qty: 1 on 07/07/2022 Lead Implant Right: Atrium [employer] C[employer] RHYTHM AND HEART FAILURE - DIV M [id number] / [id number] / Rv Lead-07/07/2022 Implanted:Qty: 1 on 07/07/2022 Lead Implant Right: Ventricle [employer]HY[employer]M AND HEART FAILURE - DIV M [id number] / [id number] / Procedures Procedure Name Priority Date/Time Associated Diagnosis Comments US BREAST LT BIRAD LTD Routine 5 11:01 AM CDT Abnormal mammogram MG DIAG W ANTON LT DIGI Routine 5 10:43 AM CDT Abnormal mammogram MAMMOGRAM GENERIC (SCAN ORDER) 08/18/2024 MG SCREENING W ANTON TONY DIGI Routine 08/15/2024 5:33 PM CDT Encounter for screening mammogram for malignant neoplasm of breast THYROXINE, FREE (FT4) Routine 08/12/2024 9:45 AM CDT HEMOGLOBIN, GLYCOSYLATED Routine 08/12/2024 9:45 AM CDT Annual physical exam General medical exam Drug therapy TSH W/REFLEX Routine 08/12/2024 9:45 AM CDT Annual physical exam General medical exam Drug therapy LIPID PANEL Routine 08/12/2024 9:45 AM CDT Annual physical exam General medical exam Drug therapy COMPREHENSIVE METABOLIC PANEL Routine 08/12/2024 9:45 AM CDT Annual physical exam General medical exam Drug therapy CBC W/DIFF AUTOMATED Routine 08/12/2024 9:45 AM CDT Annual physical exam General medical exam Drug therapy COLLECTION VENOUS BLOOD VENIPUNCTURE Routine 08/11/2024 4:17 PM CDT Annual physical exam General medical exam Drug therapy URINALYSIS AUTO DIP Routine 08/11/2024 Annual physical exam General medical exam Drug therapy OUTSIDE CYTOPATH CERV/VAG INTERPRET (PAP) (SCAN ORDER) 08/13/2021 HEPATITIS C ANTIBODY Routine 05/29/2021 10:40 AM CDT Elevated liver enzymes from Last 3 Months or Most Recently Relevant to Health Maintenance Results * BREAST LT DumbstruckAD LTD (09/01/2024 11:01 AM CDT) Anatomical Region Laterality Modality Breast Left Ultrasound 09/01/2024 10:5 7 AM CDT Impressions 09/01/2024 11:08 AM CDT ===== IMPRESSION: ===== 1. Typical benign cyst left breast. Assessment: ACR BI-RADS 2 - BENIGN FINDING(S) Recommendation: 1: Routine Screening Bilateral Comments: Ordered By: THELMA ARMSTRONG Interpreted By: Constantine Barlow, 09/01/2024 10:57 AM Narrative 09/01/2024 11:08 AM CDT [facility] [address] [place] [address] Examination: Unilateral left diagnostic mammogram and ultrasound [id number] Exam Date/Time: 09/01/2024 10:36 AM Reason For Exam: Left breast mass Comparison: 08/15/2024 Technique: Digital diagnostic mammography and ultrasound of the of the left breast was performed. This study was read with the assistance of a computer-aided detection system. 3D tomographic images were obtained. Tissue density: The breasts are heterogeneously dense, which may obscure small masses. Findings: Mammogram: Left inner breast mass is circumscribed and persists with spot compression. Ultrasound: 9:00 position 3 cm from the nipple: Ovoid, circumscribed, parallel orientation mass measures 8 x 4 x 7 mm. Typical benign cyst. No specific follow- up necessary. Procedure Note Constantine Barlow MD - 09/01/2024 [facility] [address] [place] [address] Examination: Unilateral left diagnostic mammogram and ultrasound [id number] Exam Date/Time: 09/01/2024 10:36 AM Reason For Exam: Left breast mass Comparison: 08/15/2024 Technique: Digital diagnostic mammography and ultrasound of the of theleft breast was performed. This study was read with the assistance of acomputer-aided detection system. 3D tomographic images were obtained. Tissue density: The breasts are heterogeneously dense, which may obscuresmall masses. Findings: Mammogram: Left inner breast mass is circumscribed and persists with spotcompression. Ultrasound: 9:00 position 3 cm from the nipple: Ovoid, circumscribed,parallel orientation mass measures 8 x 4 x 7 mm. Typical benign cyst. Nospecific follow- up necessary. ===== IMPRESSION: ===== 1. Typical benign cyst left breast. Assessment: ACR BI-RADS 2 - BENIGN FINDING(S) Recommendation: 1: Routine Screening Bilateral Comments: Ordered By: THELMA ARMSTRONG Interpreted By: Constantine Barlow, 09/01/2024 10:57 AM us Thelma Armstrong [employer]SEMBLER ULTRASOUND Final Resul t * MG DIAG W ANTON LT DIGI (09/01/2024 10:43 AM CDT) Anatomical Region Laterality Modality Breast Left Mammography 09/01/2024 10:5 7 AM CDT Impressions 09/01/2024 11:08 AM CDT ===== IMPRESSION: ===== 1. Typical benign cyst left breast. Assessment: ACR BI-RADS 2 - BENIGN FINDING(S) Recommendation: 1: Routine Screening Bilateral Comments: Ordered By: THELMA ARMSTRONG Interpreted By: Constantine Barlow, 09/01/2024 10:57 AM Narrative 09/01/2024 11:08 AM CDT [facility] [address] [place] [address] Examination: Unilateral left diagnostic mammogram and ultrasound [id number] Exam Date/Time: 09/01/2024 10:36 AM Reason For Exam: Left breast mass Comparison: 08/15/2024 Technique: Digital diagnostic mammography and ultrasound of the of the left breast was performed. This study was read with the assistance of a computer-aided detection system. 3D tomographic images were obtained. Tissue density: The breasts are heterogeneously dense, which may obscure small masses. Findings: Mammogram: Left inner breast mass is circumscribed and persists with spot compression. Ultrasound: 9:00 position 3 cm from the nipple: Ovoid, circumscribed, parallel orientation mass measures 8 x 4 x 7 mm. Typical benign cyst. No specific follow- up necessary. us Thelma Armstrong [employer] ASSEMBLER MAMMO Final Resul t * MAMMOGRAM GENERIC (SCAN ORDER) (08/18/2024) Anatomical Region Laterality Modality Other 08/18/2024 us [facility] Scanned SCANNING Final Resu lt * MG SCREENING W ANTON TONY DIGI (08/15/2024 5:33 PM CDT) Anatomical Region Laterality Modality Breast Bilateral Mammography 08/18/2024 9:22 AM CDT Impressions 08/18/2024 9:27 AM CDT IMPRESSION: Indeterminate left breast asymmetry versus obscured mass. RECOMMENDATION: Additional ImagingLeft OVERALL IMAGING ASSESSMENT: ACR BI-RADS 0 - INCOMPLETE: NEEDS ADDITIONAL IMAGING EVALUATION. Ordered By: BYRON BARRAZA Interpreted By: Emerson Lao, 08/18/2024 9:22 AM Narrative 08/18/2024 9:27 AM CDT [address] [place] [address] EXAMINATION: MG SCREENING W ANTON TONY BRUSH INDICATIONS: Screening TECHNIQUE: Digital full field CC and MLO screening mammography bilaterally to include 3-D Tomosynthesis technique. This study was read with the assistance of a computer-aided detection system. HISTORY: No reported breast complaint. Family history of breast cancer. No documented personal or first degree family history of breast cancer. No documented prior breast procedure. COMPARISON: 08/27/2021 TISSUE DENSITY: The breasts are heterogeneously dense, which may obscure small masses. FINDINGS: Stable benign mammographic appearance of the right breast to include an unchanged axillary tail intramammary lymph node. Indeterminate low to equal density obscured mass versus ovoid asymmetry at the inner anterior depth left breast. No associated architectural distortion. Left chest wall battery pack limits evaluation of the left axilla. No axillary adenopathy. Byron Barraza MD MAMMO Final Result * (ABNORMAL) TSH W/REFLEX (08/12/2024 9:45 AM CDT) TSH <0.007(L) 0.358 - 3.740 uIU/ML 08/12/2024 3:07 PM CDT [facility] Comment:RESULTS CONFIRMED-TE ST REPEATED 08/12/2024 9:45 AM CDT Byron Barraza MD LABORATORY Final Result Performing Organization Address City/[facility]/ZIP Co de Phone Number [facility] [place] [address] [place] [address], [place] [phone] * HEMOGLOBIN, GLYCOSYLATED (08/12/2024 9:45 AM CDT) HGB A1C 5.3 4.5 - 6.2 % 08/12/2024 4:05 PM CDT [facility] ESTIMATED AVG GLUCOSE 105 74 - 106 MG/DL 08/12/2024 4:05 PM CDT [facility] 08/12/2024 9:45 AM CDT Byron Barraza MD LABORATORY Final Result Performing Organization Address [facility] Co de Phone Number [facility] [place] [address] [place] [address], [place] [phone] * (ABNORMAL) COMPREHENSIVE METABOLIC PANEL (08/12/2024 9:45 AM CDT) SODIUM S/P/B 143 136 - 145 MMOL/L 08/12/2024 2:56 PM CDT [facility] POTASSIUM S/P/B 3.8 3.5 - 5.1 MMOL/L 08/12/2024 2:56 PM CDT [facility] CHLORIDE S/P/B 107 98 - 107 MMOL/L 08/12/2024 2:56 PM CDT [facility] CO2 25.3 21 - 32 MMOL/L 08/12/2024 2:56 PM CDT [facility] GLUCOSE 110(H) 70 - 99 MG/DL 08/12/2024 2:56 PM CDT [facility] BUN 17 7 - 18 MG/DL 08/12/2024 2:56 PM CDT [facility] CREATININE S/P/B 0.71 0.55 - 1.02 MG/DL 08/12/2024 2:56 PM [facility] CALCIUM S/P/B 9.1 8.4 - 10.5 MG/DL 08/12/2024 2:56 PM [facility] BILIRUBIN TOTAL S/P/B 1.0 0.2 - 1.0 MG/DL 08/12/2024 2:56 PM [facility] ALKALINE PHOSPHATASE S/P/B 83 37 - 98 U/L 08/12/2024 2:56 PM T [facility] AST 37 15 - 37 U/L 08/12/2024 2:56 PM [facility] ALT 53 14 - 59 U/L 08/12/2024 2:56 PM [facility] TOTAL PROTEIN S/P/B 6.3(L) 6.4 - 8.2 G/DL 08/12/2024 2:56 PM [facility] ALBUMIN S/P/B 3.1(L) 3.4 - 5.0 G/DL 08/12/2024 2:56 PM [facility] ANION GAP 10.7 5 - 15 MMOL/L 08/12/2024 2:56 PM [facility] Comment:REFERENCE RANGE NOT ESTABLISHED OSMOLALITY (CALC) 298 MOSM/KG 025 2:56 PM [facility] Comment:REFERENCE RANGE NOT ESTABLISHED GFR ESTIMATE >90 >90 ML/MIN/1. 73 M2 08/12/2024 2:56 PM [facility] GFR NOTES GFR REFERENCE S: 08/12/2024 2:56 PM [facility] Comment: THE ESTIMATED GFR IS CALCULATED USING THE 2020 CKD-EPI EQUATION. THE FOLLOWING CATEGORIES FOR GRADING RENAL FUNCTION ARE RECOMMENDED BY THE INTERNATIONAL SOCIETY OF NEPHROLOGY (KDIGO 2012 CLINICAL PRACTICE GUIDELINE). G1,NORMAL OR HIGH: >89 ml/min/1.73 m2 G2,MILDLY DECREASED: 60-89 ml/min/1.73 m2 G3A,MILDLY TO MODERATELY DECREASED: 45-59 ml/min/1.73 m2 G3B,MODERATELY TO SEVERELY DECREASED: 30-44 ml/min/1.73 m2 G4,SEVERELY DECREASED: 15-29 ml/min/1.73 m2 G5,KIDNEY FAILURE: <15 ml/min/1.73 m2 08/12/2024 9:45 AM CDT us Byron Barraza MD LABORATORY Final Result [facility] [address] [place] [address], * (ABNORMAL) LIPID PANEL (08/12/2024 9:45 AM CDT) CHOLESTEROL 99 <200 MG/DL 08/12/2024 2:56 PM CDT [facility] TRIGLYCERIDES 112 <150 MG/DL 08/12/2024 2:56 PM CDT [facility] HDL 30(L) >40 MG/DL 08/12/2024 2:56 PM CDT [facility] LDL-C 47 <100 MG/DL 08/12/2024 2:56 PM CDT [facility] VLDL CALCULATION 22 5 - 28 MG/DL 08/12/2024 2:56 PM CDT [facility] CHOL/HDL RATIO 3.3 0.0 - 4.0 08/12/2024 2:56 PM CDT [facility] LDL/HDL 1.6 0.41 - 2.13 08/12/2024 2:56 PM CDT [facility] NON HDL CHOLESTEROL 69 <140 MG/DL 08/12/2024 2:56 PM CDT [facility] 08/12/2024 9:45 AM CDT us Byron Barraza MD LABORATORY Final Result [facility] [place] [address] [place] [address], * (ABNORMAL) CBC W/DIFF AUTOMATED (08/12/2024 9:45 AM CDT) [facility] WBC 6.43 4.00 - 10.80 x10'3/uL 08/12/2024 2:21 PM CDT [facility] RBC 4.19 4.10 - 5.40 x10'6/uL 08/12/2024 2:21 PM CDT [facility] HGB 11.7(L) 12.0 - 16.0 G/DL 08/12/2024 2:21 PM CDT [facility] HCT 36.8 36.0 - 47.0 % 08/12/2024 2:21 PM CDT [facility] MCV 87.8 78.0 - 100.0 FL 08/12/2024 2:21 PM CDT [facility] MCH 27.9 27.0 - 31.0 PG 08/12/2024 2:21 PM CDT [facility] MCHC 31.8(L) 33.0 - 36.0 G/DL 08/12/2024 2:21 PM CDT [facility] RDW 11.7 11.5 - 14.5 % 08/12/2024 2:21 PM CDT [facility] PLT 197 150 - 350 x10'3/uL 08/12/2024 2:21 PM CDT [facility] MPV 12.8(H) 7.4 - 10.4 FL 08/12/2024 2:21 PM CDT [facility] DIFFERENTIAL TYPE AUTOMATED DIFFERENTIAL 08/12/2024 2:21 PM CDT [facility] NEUTROPHILS % 75.4 % 08/12/2024 2:21 PM CDT -[facility] LYMPHOCYTES % 14.3 % 08/12/2024 2:21 PM CDT [facility] MONOCYTES % 6.8 % 08/12/2024 2:21 PM CDT [facility] EOSINOPHILS % 2.8 % 08/12/2024 2:21 PM CDT [facility] BASOPHILS % 0.5 % 08/12/2024 2:21 PM CDT [facility] IMMATURE GRANS % 0.2 % 08/12/2024 2:21 PM CDT [facility] ABS. NEUTROPHILS 4.85 1.60 - 8.30 x10'3/uL 08/12/2024 2:21 PM CDT [facility] ABS. LYMPHOCYTES 0.92 0.80 - 4.70 x10'3/uL 08/12/2024 2:21 PM CDT -[facility] ABS. MONOCYTES 0.44 0.00 - 1.50 x10'3/uL 08/12/2024 2:21 PM CDT [facility] ABS. EOSINOPHILS 0.18 0.00 - 0.40 x10'3/uL 08/12/2024 2:21 PM CDT [facility] ABS. BASOPHILS 0.03 0.00 - 0.20 x10'3/uL 08/12/2024 2:21 PM CDT [facility] ABS. IMMATURE GRANULOCYTES 0.01 0.00 - 0.03 x10'3/uL 08/12/2024 2:21 PM CDT [facility] 08/12/2024 9:45 AM CDT us Byron Barraza MD LABORATORY Final Result [facility] [address] [place] [address], * (ABNORMAL) THYROXINE, FREE (FT4) (08/12/2024 9:45 AM CDT) FREE T4 6.95(H) 0.76 - 1.46 NG/DL 08/12/2024 4:01 PM CDT [facility] 08/12/2024 9:45 AM CDT us Byron Barraza MD LABORATORY Final Result [facility] [address] [place] [address], * (ABNORMAL) URINALYSIS AUTO DIP (08/11/2024) COLOR (U) YELLOW YELLOW [address], [place] TRANSPARENCY CLEAR CLEAR MG[address], [place] GLUCOSE (U) NEGATIVE NEGATIVE MG/DL MG[address], [place] BILIRUBIN (U) 1+ (SMALL)(A) NEGATIVE MG-[address], [place] KETONES MG/DL (U) >=160 (Large 4+)(A) NEGATIVE MG/DL MG-[address], [place] SPECIFIC GRAVITY (U) 1.030 1.001 - 1.035 MG[address], [place] BLOOD (U) MODERATE (Non Hemolyzed, Intact, About 50 rbc/uL)(A) NEGATIVE MG-[address], [place] U PH 5.5 5.0 - 9.0 MG[address], [place] PROTEIN (U) NEGATIVE NEGATIVE mg/dL MG-[address], [place] UROBILINOGEN 0.2 0.2 - 1.0 EU/dL = mg/dL MG-[address], [place] NITRITES NEGATIVE NEGATIVE MG/DL MG-[address], [place] LEUKOCYTES (U) NEGATIVE NEGATIVE MG-[address], [place] URINE SPECIMEN OBTAINED BY CLEAN CATCH PROCEDURE / Unknown 08/11/2024 us Byron Barraza MD URINE ORDERABLES Final Result Performing Organization Address [facility] Co de Phone Number -[phone], [place] [address] [facility] [address] [place] [address], * PAP SMEAR (08/13/2021) 08/13/2021 [facility] Scanned SCANNING Final Resu lt * HEPATITIS C AB ([facility] ONLY) (05/29/2021 10:40 AM CDT) HEPATITIS C AB NON-REACTI VE NON-REACT PETER 05/29/2021 7:12 PM CDT [facility] Comment: ANTIBODIES TO HCV NOT DETECTED. DOES NOT EXCLUDE THE POSSIBILITY OF EXPOSURE TO HCV. 05/29/2021 10:4 0 AM CDT Byron Barraza MD LABORATORY Final Result Performing Organization Address [facility] Co de Phone Number [facility] [address] [place] [address], [phone] from Last 3 Months or Most Recently Relevant to Health Maintenance Insurance [facility] Care Teams Nutrition Tech Relationship Specialty Start Date End Date Byron Barraza MD [address] [facility] [address] [place] [address] PCP - General INTERNAL MEDICINE 06/25/20
--- OUTSIDE RECORDS SUMMARY | 2024-09-08 14:46 | XMS_ITS | Encounter Summary ---
Author Organization [facility] Address [address] [place] [address] Care Team Providers Care Donation Worker Name Role Phone Byron Barraza MD Primary Care Provider [phone] Encounter Details Date Type Department Care Team (Latest Contact Info) Description 12/18/2020 MyChart Message Enc [address] [address] [address] [place] [address] Byron Barraza MD [address] [place] [address] [phone] Due for a follow up with your doctor Social History Tobacco Use Types Packs/Day Years Used Date Smoking Tobacco: Never Smokeless Tobacco: Never Comments:by Dr Barrzaa Alcohol Use Standard Drinks/Week Comments Not Currently [...] Upcoming Encounters Date Type Department Care Team ( Contact Info) Description 09/14/2024 10:20 AM CDT Laboratory Only [address] [place] [address] Byron Barraza MD [address] [address] 11/14/2024 10:20 AM CDT Office Visit [facility] Multispecialty Care - [place] [address] [address] [address] [address] [address] [place] [address] Byron Barraza MD [facility] [address] documented as of this encounter Visit Diagnoses Not on filedocumented in this encounter Additional Health Concerns Infection Onset Date Last Indicated Resolved Time COVID-19 Rule Out 12/28/2023 12/28/2023 12/28/2023 1:04 PM CDT Influenza - Seasonal 12/28/2023 12/28/2023 024 12:32 AM TIE TAMPER Assessment Noted Time PHQ-9 Depression Total Score: 17 021 10:42 AM CDT documented as of this encounter Care Teams Donation Worker Relationship Specialty Start Date End Date Byron Barraza MD [address] [place] [address] PCP - General INTERNAL MEDICINE 06/25/20 documented as of this encounter
--- OUTSIDE RECORDS SUMMARY | 2024-09-08 14:46 | XMS_ITS | Encounter Summary ---
Author Organization [facility] Address [address] [place] [address] Care Team Providers Care Hand Stemmer Name Role Phone Byron Barraza MD Primary Care Provider [phone] Encounter Details Date Type Department Care Team (Late Contact Info) Description 08/26/2023 MyChart Message Enc [address] [address] Byron Barraza MD [address] [place] [address] Amiodarone Social History Tobacco Use Types Packs/Day Years [...] Description 09/14/2024 10:20 AM CDT [facility] [address] [address] [place], [place] [phone] Byron Barraza MD [address] [address] 11/14/2024 10:20 AM CDT Office Visit [facility] Multispecialty Care - [place] [address] [address] [address] [place] [address] Byron Barraza MD [facility] [address] [address] documented as of this encounter Visit Diagnoses Not on filedocumented in this encounter Additional Health Concerns Infection Onset Date Last Indicated Resolved Time COVID-19 Rule Out 12/28/2023 12/28/2023 12/28/2023 1:04 PM CDT Influenza - Seasonal 12/28/2023 12/28/2023 024 12:32 AM FUR OPERATOR Assessment Noted Time PHQ-9 Depression Total Score: 0 04/17/19 22 9:52 AM FUR OPERATOR documented as of this encounter Care Teams Hand Stemmer Relationship Specialty Start Date End Date Byron Barraza MD [address] [place] [address] PCP - General INTERNAL MEDICINE 06/25/20 documented as of this encounter
--- OUTSIDE RECORDS SUMMARY | 2024-09-08 14:46 | XMS_ITS | Encounter Summary ---
Author Organization [facility] Address [address] [place] [address] Care Team Providers Care Pantry Goods Worker Name Role Phone Byron Barraza MD Primary Care Provider [phone] Encounter Details Date Type Department Care Team (Late Contact Info) Description 10/07/2023 MyChart Message Enc [address] [address] Byron Barraza MD [address] [place] [address] Wegovy Social History Tobacco Use Types Packs/Day Years [...] Description 09/14/2024 10:20 AM CDT [facility] [place], [place] [address] Byron Barraza MD [address] [address] 11/14/2024 10:20 AM CDT Office Visit [facility] Multispecialty Care - [place] [address] [address] [address] [place] [address] Byron Barraza MD [facility] [address] [address] documented as of this encounter Visit Diagnoses Not on filedocumented in this encounter Additional Health Concerns Infection Onset Date Last Indicated Resolved Time COVID-19 Rule Out 12/28/2023 12/28/2023 12/28/2023 1:04 PM CDT Influenza - Seasonal 12/28/2023 12/28/2023 024 12:32 AM LAB TESTER Assessment Noted Time PHQ-9 Depression Total Score: 0 04/17/19 22 9:52 AM LAB TESTER documented as of this encounter Care Teams Pantry Goods Worker Relationship Specialty Start Date End Date Byron Barraza MD [address] [place] [address] PCP - General INTERNAL MEDICINE 06/25/20 documented as of this encounter
--- OUTSIDE RECORDS SUMMARY | 2024-09-08 14:46 | XMS_ITS | Encounter Summary ---
Author Organization [facility] Address [address] [place] [address] Care Team Providers Care White [employer]wall T[employer] Buffer Name Role Phone Byron Barraza MD Primary Care Provider [phone] Encounter Details Date Type Department Care Team (Late st Contact Info) Description 07/30/2021 MyChart Message Enc [address] [address] [address] [place] [address] Byron Barraza MD [address] [place] [address] [phone] Appointment Social History Tobacco Use Types Packs/Day Years [...] Description 09/14/2024 10:20 AM CDT Laboratory Only [address] [place] [address] Byron Barraza MD [address] [address] 11/14/2024 10:20 AM CDT Office Visit [facility] Multispecialty Care - [place] [address] [address] [address] [place] [address] Byron Barraza MD [facility] [address] [address] documented as of this encounter Visit Diagnoses Not on filedocumented in this encounter Additional Health Concerns Infection Onset Date Last Indicated Resolved Time COVID-19 Rule Out 12/28/2023 12/28/2023 12/28/2023 1:04 PM CDT Influenza - Seasonal 12/28/2023 12/28/2023 024 12:32 AM RELIEF DRILLER Assessment Noted Time PHQ-9 Depression Total Score: 0 04/17/19 22 9:52 AM RELIEF DRILLER documented as of this encounter Care Teams [employer] Buffer Relationship Specialty Start Date End Date Byron Barraza MD [address] [place] [address] PCP - General INTERNAL MEDICINE 06/25/20 documented as of this encounter
--- OUTSIDE RECORDS SUMMARY | 2024-09-08 14:46 | XMS_ITS | Data Portability ---
Author Organization [place] [facility] OFFICE Address [address] [place] [address] Assessment No assessment recorded. Plan of Treatment Reminders Order Date Submit Date Provider Last Modified By Organization Details Last Modified Time Details Appointments None recorded. Lab None recorded. Referral None recorded. Procedures None recorded. Surgeries None recorded. Imaging electrocar diogram 2017 018 [email or web address] Not available 18:26:46 electrocar diogram 2017 018 [email or web address] Not available 18:26:46 Medication Orders digoxin 125 mcg (0.125 mg) tablet 2017 018 INTERFACE [facility] [address] [facility], [place], [address], 8 18:26:50 Patient TargetsNo targets recorded. Patient Instructions Encounter Date Encounter Id Patient Instructions Last Modified By Organization Details Last Modified Time 11/05/2017 [id number] gestational diabetes: care instructions [email or web address] Not available 11/05/2017 18:26:46 supraventricular tachycardia: care instructions [email or web address] Not available 11/05/2017 18:26:46 wheezing or bronchoconstriction: care instructions [email or web address] Not available 11/05/2017 18:26:46 This document wa s scribed by Kassandra landaverde Not available 11/05/2017 16:34:27 Reason for Referral None Reported. Results Created Date Observation Date Name Description Value Unit Range Abnormal Flag Note LastModifiedBy Organization Detail LastModifiedTime 11/06/19 18 11/05/2017 elect rocar diogr am Result EKG 9011/05); sinus tachyc ardia, NSST change s Not Available Tmo Duque MD [address] [facility] [address], [place], [address], 11/05/2017 18:23:42 11/06/19 18 11/05/2017 elect rocar diogr am Result sinus tachyc ardia otherw isw within normal limits Not Available Tom Duque MD [address] [facility] [address], [place], [address], 11/05/2017 15:53:40 11/12/19 18 10/25/2017 XR, chest No observ ation record ed. [email or web address] Not Available 2017 09:08:09 11/12/19 18 10/26/2017 US, echoc ardio gram No observ ation record ed. [email or web address] Not Available 2017 09:13:03 11/12/19 18 11/05/2017 elect rocar diogr am No observ ation record ed. [email or web address] Not Available 2017 09:21:37 Result Notes None recorded. Problems Name Problem SNOMED Code Status Onset Date Resolution Date Notes Provider Name and Address Organization Details Recorded Time Gestational diabetes mellitus 54371119 Active 2017 Geraldine Greenfield null, [place] - [facility] 8 15:41:10 Dyspnea 349895654 Active 2017 Geraldine Green[place], [place] - [facility] 8 15:41:24 Wheezing 82436888 Active 2017 Geraldine [place], [place] - [facility] 8 15:41:31 Paroxysmal supraventricul ar tachycardia 58622011 Active 2017 Kassandra Jarrell null, [place] - [facility] 8 16:33:10 Dyspnea on exertion 96921632 Active 2017 Kassandra Jarrell null, [place] - [facility] 8 16:33:22 Dizziness 572809972 Active 2017 Chuck Castellon null, [place] - [facility] 8 07:05:24 Palpitations 96305278 Active 2017 Chuck Castellon null, [place] - [facility] 8 07:06:10 Deep venous thrombosis 682503052 Active 2017 Chuck Castellon [facility] 8 07:06:57 Problem Notes None recorded. Procedures Surgical History Date Name Laterality Status Provider Name and Address Organization Details Recorded Time 03/02/1996 Tonsillect chani/Adenoi dectomy completed Geraldine Fischerstefanie [facility] 11/05/2017 15:43:09 Imaging Results None recorded. Procedure Notes None recorded. Medical Equipment None Reported. Allergies Allergen ID Allergen Name Allergen Category Reaction Reaction Severity Criticality Documentation Date Start Date Code Code System Note Provider Name and Address Organization Details Recorded Time 6720 Product containin g penicilli n (product) medicatio n Not available Not available Not available 11/05/2017 05471 8001 SNOMED Geraldine Greenfield [facility] 8 15:49:34 6721 azithromy denis medicatio n Not available Not available Not available 11/05/2017 45076 RxNorm Geraldine Greenfield [facility] 8 15:49:43 6722 cefuroxim e Not available Not available Not available Not available 11/05/2017 2194 RxNorm Geraldine Greenfield [facility] 8 15:50:26 6723 Medicinal product containin g cephalosp josué and acting as antibacte rial agent (product) medicatio n Not available Not available Not available 11/05/2017 67640 9009 SNOMED Geraldine Greenfield [facility] 8 15:50:39 6724 Ceftin medicatio n Not available Not available Not available 11/05/2017 18995 6 RxNorm Geraldine Greenfield [facility] 8 15:50:46 Medications Name Sig Start Date Stop Date Status Note LastModified by Organization Details LastModified Time triamcinolone acetonide 0.5 % topical cream 11/05 completed Not Available Not Available Not Available azithromycin 250 mg tablet 11/05 completed Not Available Not Available Not Available Novolin N NPH U-100 Insulin isophane 100 unit/mL subcutaneous susp 8 units hs 2017 active Not Available Not Available Not Avai lable clindamycin HCl 150 mg capsule 11/05 completed Not Available Not Available Not Available buspirone 7.5 mg tablet active Not Available Not Available No t Available digoxin 125 mcg (0.125 mg) tablet Take 1 tablet every day by oral route. 2017 active Not Available Not Available Not Avai labgeo methylprednis olone 4 mg tablets in a dose pack 11/05 completed Not Available Not Available Not Available moxifloxacin 0.5 % eye drops 11/05 completed Not Available Not Available Not Available 1 tad qd active Not Available Not Available No t Available ProAir HFA 90 mcg/actuation aerosol inhaler 11/05 completed Not Available Not Available Not Available OneTouch UltraMini kit 11/05 completed Not Available Not Available Not Available Pulmicort Flexhaler 90 mcg/actuation breath activated 11/05 completed Not Available Not Available Not Available OneTouch Delica Lancets 30 gauge active Not Available Not Available Not Available BD Insulin Syringe Ultra-Fine 0.3 mL 31 gauge x 5/16 11/05 completed Not Available Not Available Not Available OneTouch Ultra Blue Test Strip active Not Available Not Available N ot Available Vitals Date Recorded Body weight Body mass index (BMI) Body height Heart rate Oxygen saturation Oxygen saturation in Arterial blood by Pulse oximetry Systolic And Diastolic Provider Name and Address Organization Details Last Updated DateTime 8 01742.5 8 g 34.2 kg/m2 167.64 cm 116 /min 98 % 98 % 138/76 mm[Hg] Geraldine Greenfield [place] - [facility] 8 15:53:26 Social History Question Answer Notes LastModified by Organizat ion Details LastModified Time Tobacco Smoking Status Never Smoker Not Available [employer] 01/03/2020 03:30:42 What Is Your Level Of Caffeine Consumption? Occasional [id number] Information not available 01/03/2020 How Much Tobacco Do You Chew? None [id number] Information not available 01/03/2020 What Type Of Diet Are You Following? DIABETIC [id number] Information not available 01/03/2020 Marital Status kaitlin Ochoa n not available 11/05/2017 What Was The Date Of Your Most Recent Tobacco Screening? 11/05/2017 [id number] Information not available 01/03/2020 How Many Children Do You Have? 3 [id number] Information not available 01/03/2020 How Much Tobacco Do You Smoke? No [id number] Information not available 01/03/2020 How Many Years Have You Smoked Tobacco? 0 [id number] Information not available 01/03/2020 Sex: Unknown Functional Status Question Answer Note LastModified by Organization D etails LastModified Time What is your level of alcohol consumption? None [id number] Information not available 01/03/2020 What is your exercise level? None Information not available 01/03/2020 Mental Status None recorded. Family History Relationship Description Onset Age of this Age Resolved Age Notes LastModified by Organization Details LastModified Time Brother Diabetes mellitus [email or web address] Not available 2017 15:41:58 Medical History No medical history recorded. Gynecological HistoryNo gynecological history recorded. Obstetrics History GPAL:G 0 P 0 0 0 0 Past Encounters Encounter ID Performer Location Encounter Start Date Encounter Closed Date Diagnosis/Indication Diagnosis SNOMED-CT Code Diagnosis ICD10 Code Diagnosis Note [id number] Yang Ahmadi MD [place] OFFICE [address] [place] [address] 11/05/2017 15:12:25 11/05/2017 18:26:53 Paroxysmal supraventricular tachycardia 02017893 I47.1 One episode ever resolved after iv AdoIf recurrent will consider EP evaluation after completed. HR 116 today, NSR. Echo showed normal LV function, EF 60%, mild MVP. She is on Digoxin, will check Dig Level. and electrolyt es Wheezing 29918389 R06.2 Currently has bronchitis with productive cough. Gestationa l diabetes mellitus 73056441 O24.419 Health Concerns Section Related Observation LastModified by Organization Detai ls LastModified Time None Recorded Concern Status LastModified by Organization Details LastModified Time None Recorded Advance Directives Directive None Recorded Payers Insurance Date Sequence Insurance Name Policy Number Policy Bell Covered Member ID Bell Member ID Guarantor Name 12/05/2017 1 [place] [id number] Kvng Neri [id number] Kirsten Neri Notes Date Note Type Note Provider Name and Address Organization Details Recorded Time 11/05/2017 text/html 11/05/17 CC: Near syncope fu 37 year old white woman who is 16 weeks (A), gestational DM, depression, presents for cardiac hospital follow up with a chief complaint of near syncope. She [facility] 10/25/17 after she felt lightheaded, palpitations and developed tunnel vision while sitting down eating breakfast on 10/25/17. On arrival to ER she was diagnosed with SVT, rate was 235, she was given IV Adenocard 6 mg with improvement of HR to 120. She had CXR which was negative, initial troponin was 0.064 but there was no concern for NSTEMI. Echo showed normal LV function, EF 60%, mild MVP. She was discharged on Digoxin. Since discharge, she denies any more palpitation, lightheadedness, syncope or dizziness. She does have dyspnea on exertion with walking around her house. She is also getting over Bronchitis which she has had for 5 weeks with symptoms of productive cough white phlegm and wheezing at night. HR has been running in lower 100's and standing HR increases to 130's. Denies chest pain. She sees [employer]ICER Dr. Zhu. No known history of coronary artery disease. No history of previous myocardial infarction. No history of heart failure. History of valvular heart disease reported, MVP History of arrhythmia reported, SVT Patient reports feeling well overall. Patient is active, but is not exercising regularly, due to shortness of breath. No chest pain. No arm pain. No neck pain. No nausea and vomiting. No diaphoresis. No shortness of breath at rest. Dyspnea on exertion reported. No fatigue.No orthopnea. No PND. No leg swelling. Palpitation reported. No dizziness. No syncope . Pre-syncope reported. No claudication. No major bleeding events. No side effects from medications. Complete ROS negative except as stated in the HPI and ROS. Results from this visit, or from the past: 10/26/17: Na 139, K 3.9, Cl 108, CO2 22, GLU 87, BUN 5, Cr 0.50EKG 9011/05/17); sinus tachycardia, NSST changes Yang Ahmadi [address], [place] - [facility] 11/05/2017 18:26:50 OBGyn Episode No OBEpisode recorded.
--- OUTSIDE RECORDS SUMMARY | 2024-09-08 14:46 | XMS_ITS | Encounter Summary ---
Author Organization [facility] Address [address] [place] [id number] Care Team Providers Care Control Integration Engineer Name Role Phone Byron Barraza MD Primary Care Provider [phone] Encounter Details Date Type Department Care Team (Late st Contact Info) Description 06/29/2020 MyChart Message Enc [facility] - [place] [address] [place] [address] [address] [place], [place] [id number] [place] [address] [place] [address] [address] [place], [place] [id number] lab result Social History Tobacco Use Types Packs/Day Years Used Date Smoking Tobacco: Never Smokeless Tobacco: Never Comments:by Dr Barraza Alcohol Use Standard Drinks/Week Comments Not Currently 0 (1 standard drink = 0.6 oz pur e alcohol) PHQ-2 Answer Date Recorded PHQ-2 Score - If the patient scores above 3, please move on to questions 3-9 3 06/27/2020 Comments No Sex and Gender Information Value Date Recorded Sex Assigned at Female 05/10/2024 9:47 AM CDT Legal Sex Female 4:03 PM CDT Gender Identity Female 05/10/2024 9:47 AM CDT Sexual Orientation Straight 05/10/2024 9: 47 AM CDT COVID-19 Exposure Response Date Recorded In the last month, have you been in contact with someone who was confirmed or suspected to have Coronavirus / COVID-19? No / Unsure 06/27/2020 9:39 AM CDT documented as of this encounter Plan of Treatment Upcoming Encounters Date Type Department Care Team (Late st Contact Info) Description 09/14/2024 10:20 AM CDT Laboratory Only [facility] [place] [address] [address] [place] [address] Byron Barraza MD [address] [address] 11/14/2024 10:20 AM CDT Office Visit [facility] - [address] [place] [address] Byron Barraza MD [facility] [address] [address] documented as of this encounter Visit Diagnoses Not on filedocumented in this encounter Additional Health Concerns Infection Onset Date Last Indicated Resolved Time COVID-19 Rule Out 12/28/2023 12/28/2023 12/28/2023 1:04 PM CDT Influenza - Seasonal 12/28/2023 12/28/2023 024 12:32 AM PENSION ADVISER Assessment Noted Time PHQ-9 Depression Total Score: 17 021 10:59 AM CDT documented as of this encounter Care Teams Control Integration Engineer Relationship Specialty Start Date End Date Byron Barraza MD [address] [place] [id number] PCP - General INTERNAL MEDICINE 06/25/20 documented as of this encounter
== END 2024-09-08 14:40 | disposition home or self-care (01) ==
LOC: ANHCARD 14:43
PROVIDERS: PCP Internal Medicine; Visit Provider Internal Medicine Cardiovascular Disease
DX: R00.0 Tachycardia, unspecified (principal); I49.3 Ventricular premature depolarization; R94.31 Abnormal electrocardiogram [ECG] [EKG]
CPT/HCPCS: 93005

== ENCOUNTER 2024-09-30 11:10 | Outpatient (CLI) | payer BC, SELFPAY ==
--- NOTE | ~2024-09-30 | US_ITS ---
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 COMPARISON: No prior studies for comparison. FINDINGS: The right thyroid lobe measures 5.3 x 1.9 x 1.8 cm. The left thyroid lobe measures 4.6 x 1 .7 x 1.5 cm. There is normal echotexture and echogenicity throughout the thyroid gland. No discrete n odules identified. Normal vascular flow is present. IMPRESSION: 1. Normal thyroid without discrete nodule or abnormal vascularity. Reviewed, dictated and finalized at location A.
== END 2024-09-30 11:11 | disposition home or self-care (01) ==
DX: E01.2 Iodine-deficiency related (endemic) goiter, unspecified (principal)
CPT/HCPCS: 76536